=== PATIENT | female | born 1950 | race Caucasian/White ===

== ENCOUNTER → 2018-04-27 10:44 | Outpatient (CLI) | payer OTHER, SELFPAY ==
[2018-04-27 12:28] LABS: Hemoglobin A1C% w Est Avg Glu 5.8 % (4.0-6.0)
[2018-04-27 12:37] LABS: Alanine Aminotransferase 37 IU/L (9-52); Albumin 4.3 g/dL (3.5-5.0); Albumin Globulin Ratio 1.4 (1.0-2.8); Alkaline Phosphatase 76 U/L (38-126); Aspartate Aminotransferase 36 IU/L (14-36); Bilirubin Total 0.5 mg/dL (0.2-1.3); Blood Urea Nitrogen 16 mg/dL (7-17); Calcium 9.3 mg/dL (8.4-10.2); Carbon Dioxide 31 mmol/L (22-32); Chloride 100 mmol/L (98-107); Cholesterol 229 mg/dL (140-199); Estimated Glomerular Filt Rate > 60.0 mL/min (>60); Globulin 3.1 g/dL (1.7-4.1); Glucose 107 mg/dL (80-110); HDL Cholesterol 60 mg/dL (40-60); HEMOLYSIS < 15 (0-50); LDL Cholesterol Calculated 129 mg/dL (<100); Potassium 3.4 mmol/L (3.4-5.1); Sodium 143 mmol/L (137-145); Total Protein 7.4 g/dL (6.3-8.2); Triglycerides 200 mg/dL (35-150)
[2018-04-27 12:42] LABS: Free T4, Direct Thyroxine 1.21 ng/dL (0.78-2.19)
[2018-04-27 12:56] LABS: Thyroid Stimulating Hormone 1.71 uIU/mL (0.47-4.68)
== END ==
PROVIDERS: PCP Family Medicine; Visit Provider Internal Medicine
DX: Z13.220 Encounter for screening for lipoid disorders (principal); R73.01 Impaired fasting glucose; E89.0 Postprocedural hypothyroidism
CPT/HCPCS: 36415; 80053; 80061; 83036; 84439; 84443

== ENCOUNTER → 2018-04-29 10:16 | Outpatient (CLI) | payer OTHER, SELFPAY ==
--- NOTE | 2018-04-29 10:17 | DI.MG.S_ITS ---
BILATERAL DIGITAL SCREENING MAMMOGRAM 3D/2D WITH CAD: 04/29/2018 CLINICAL: Routine screening. Comparison is made to exams dated: 10/06/2016 mammogram, 08/19/2015 mammogram, and 09/25/2012 mammogram - Located Within [facility]. There are scattered fibroglandular elements in both breasts. Current study was also evaluated with a Computer Aided Detection (CAD) system. No significant masses, calcifications, or other findings are seen in either breast. There has been no significant interval change. IMPRESSION: NEGATIVE There is no mammographic evidence of malignancy. A 1 year screening mammogram is recommended. This exam was interpreted at Station ID: [id number]. NOTE: For mammograms, a report in lay terms will be sent to the patient. Approximately 15% of breast malignancies will not be visualized mammographically. In the management of a palpable breast mass, a negative mammogram must not discourage biopsy of a clinically suspicious lesion. Electronically Signed By: Tayla ariza/mejia:05/01/2018 09:59:03 letter sent: Normal Exam ACR BI-RADS Category 1: Negative [id number]
== END ==
PROVIDERS: PCP Family Medicine; Visit Provider Family Medicine
DX: Z12.31 Encounter for screening mammogram for malignant neoplasm of breast (principal)
CPT/HCPCS: 77063; 77067

== ENCOUNTER → 2018-09-29 12:16 | Outpatient (CLI) | payer OTHER, SELFPAY ==
--- NOTE | 2018-09-29 12:19 | DI.RAD.S_ITS ---
PROCEDURE: XR LUMBAR SPINE 2-3V INDICATIONS: POST LAMINECTOMY SYNDROME TECHNIQUE: 5 views of the lumbar spine were acquired. COMPARISON: [facility], , L-SPINE 2-3 VIEWS, 06/02/2016, 9:55. FINDINGS: Bones: 5 [id number] vertebrae are present. There is grade 1 anterolisthesis of L4 on L5. Degenerative endplate changes at L3-4 through L5-S1 levels are seen. No vertebral body compression fractures. No suspicious bony lesions. Oblique views shows left worse than right bilateral neuroforaminal narrowing at L4-5 and L5-S1 levels. Soft tissues: Overlying bowel gas pattern is normal. No suspicious soft tissue calcifications. IMPRESSION: Grade 1 anterolisthesis of L4 on L5 with degenerative disease at L3-4 through L5-S1 levels. Suggestion of bilateral neural foramina narrowing at L4-5 and L5-S1 levels. No acute compression fracture. Dictated by: Marlon Newell M.D. on 09/29/2018 at 13:54 Approved by: Marlon Newell M.D. on 09/29/2018 at 13:55
== END ==
PROVIDERS: PCP Family Medicine; Visit Provider Physical Medicine & Rehabilitation
DX: M96.1 Postlaminectomy syndrome, not elsewhere classified (principal); M51.16 Intervertebral disc disorders with radiculopathy, lumbar region; M51.17 Intervertebral disc disorders with radiculopathy, lumbosacral region; M43.16 Spondylolisthesis, lumbar region
CPT/HCPCS: 72100

== ENCOUNTER → 2018-10-13 07:42 | Outpatient (CLI) | payer OTHER, SELFPAY ==
--- NOTE | 2018-10-13 07:45 | DI.MRI.S_ITS ---
PROCEDURE: MR LUMBAR SPINE WO CON INDICATIONS: POST LAMINECTOMY SYNDROME TECHNIQUE: Noncontrast sagittal T1 spin echo and T2 fast echo, sagittal STIR, axial T1 and T2 fast spin echo through the lumbar spine. In cases with scoliosis, additional coronal T2 fast spin echo may be performed. COMPARISON: [facility], MR, L-SPINE WITHOUT CONTRAST, 05/04/2016, 18:52. [facility], CR, XR LUMBAR SPINE 2-3V, 09/29/2018, 12:22. FINDINGS: Image quality: Excellent. Alignment and Curvature: 5 lumbar-type vertebral bladder present by plain film. There is mild grade 1 anterolisthesis of L4 on L5. Mild grade 1 retrolisthesis of L5 on S1. Bone Marrow: Marrow is of normal overall signal. No acute vertebral body compression fractures. There is mild reactive signal within the endplates adjacent to the the L4-L5 and L5-S1 intervertebral discs. Spinal Cord: Conus medullaris terminates at the lower L2 level. Visualized cord demonstrates normal signal and size. Paraspinous Soft Tissues: No paravertebral masses. L1-L2: Small left paracentral protrusion. Minimal canal stenosis. No foraminal stenosis. No change. L2-L3: Mild diffuse disc bulge. Mild facet and ligamentum flavum hypertrophy. Mild epidural lipomatosis. Mild canal stenosis. No foraminal stenosis. L3-L4: Mild disc height loss and desiccation. Mild diffuse disc bulge. Mild facet and ligament flavum hypertrophy. Mild epidural lipomatosis. Mild canal stenosis. Mild bilateral foraminal stenosis. L4-L5: Moderate disc height loss and desiccation. Mild diffuse disc bulge. Right greater than left facet hypertrophy. Mild canal stenosis. Mild bilateral foraminal stenosis. No change. L5-S1: Moderate disc desiccation. Mild diffuse disc bulge. Moderate facet and ligamentum flavum hypertrophy. Mild canal stenosis. Moderate foraminal stenosis bilaterally. IMPRESSION: 1. Multilevel degenerative disc and facet disease, as well as ligamentum flavum hypertrophy and epidural lipomatosis. 2. Mild multilevel canal stenoses. 3. Multilevel foraminal stenoses, worse at L5-S1 bilaterally where there are moderate foraminal stenoses present, as before. Dictated by: Alexi Burnham M.D. on 10/13/2018 at 9:07 Approved by: Alexi Burnham M.D. on 10/13/2018 at 9:10
== END ==
PROVIDERS: PCP Family Medicine; Visit Provider Physical Medicine & Rehabilitation
DX: M96.1 Postlaminectomy syndrome, not elsewhere classified (principal); M51.36 Other intervertebral disc degeneration, lumbar region; M51.37 Other intervertebral disc degeneration, lumbosacral region; M48.061 Spinal stenosis, lumbar region without neurogenic claudication; M48.07 Spinal stenosis, lumbosacral region; M43.16 Spondylolisthesis, lumbar region; E88.2 Lipomatosis, not elsewhere classified
CPT/HCPCS: 72148

== ENCOUNTER 2018-10-24 13:15 | Outpatient (CLI) | payer OTHER, SELFPAY ==
[2018-10-24] VITALS (8 sets, daily range): BP systolic 134–162; BP diastolic 77–87; PULSE 85–95; RESP 16–20; TEMP 36.9; O2SAT 94–97
--- NOTE | 2018-10-24 13:16 | DI.RAD.S_ITS ---
PROCEDURE: PAIN L/S FACET INJ/BLK 1ST GRACIELA COMPARISON: None. INDICATIONS: SPINAL STENOSIS FINDINGS: Fluoroscopic spot filming was performed to verify placement of spinal needles at the L4-L5 and L5-S1 level(s), as labeled on the films. Appropriate location(s) of the needle tip(s) was confirmed by injection of iodinated contrast. Dictated by: Chad Guzman M.D. on 10/24/2018 at 15:14 Approved by: Chad Guzman M.D. on 10/24/2018 at 15:14
[2018-10-24] MEDS: fentaNYL 100 MCG/2 ML INJ 50 MCG IV (13:57)
[2018-10-24] MEDS: MIDAZOLAM 5 MG/5 ML VIAL IV (13:57)
[2018-10-24] MEDS: LIDOCAINE 1% 20 ML INJ 10 ML INJ (14:01)
[2018-10-24] MEDS: BUPIVACAINE 0.5% (PF) VIAL 2 ML INJ (14:03)
[2018-10-24] MEDS: BETAMETHASONE 30 MG/5 ML MDV 12 MG INJ (14:03)
--- NOTE | 2018-10-24 14:08 | PC.NURSE ---
ASSISTING PT OFF TABLE AND TRANSPORTING TO POST PROC AREA IN STABLE CONDITION
--- NOTE | 2018-10-24 14:16 | P.PCN_ITS ---
Procedures Date/Time Date of procedure: 10/24/18 Time of procedure: 14:15 General Procedure description: PREOP DIAGNOSIS 1. FACET ARTHROPATHY 2. AXIAL LBP 3. MULTILEVEL DDD POST OP DIAGNOSIS 1. FACET ARTHROPATHY 2. AXIAL LBP 3. MULTILEVEL DDD PROCEDURES 1. FLUORSCOPICALLY GUIDED CONTRAST CONTROLLED FACET JOINT INJECTIONS BILATERAL L4/5, L5/S1 PHYSICIAN: William Nunes, DO INDICATIONS Whitney is referred by Dr. Luis for treatment of Axial LBP FINDINGS Multilevel Facet Arthropathy with Clinically significant axial LBP DESCRIPTION OF PROCEDURE Fluoroscopically guided, contrast-controlled bilateral L4/5, L5/S1 facet joint injections. Following denial of allergy and review of potential side effects and complications, including, but not necessarily limited to, infection, allergic reaction, local tissue breakdown, stroke, temporary or permanent nerve injury, paralysis, and possible , the patient indicated that the patient understood and agreed to proceed. An informed consent document was signed by the patient, witnessed by a nurse, and placed in the patient's chart. Additionally, other treatment options including medications, modalities, and physical therapy were reviewed with the patient. After review of previous anaesthesic history and IV conscious sedation the patient was deemed safe to proceed with todays procedure with IV conscious sedation as ASA class II designation. Safety time-out was performed to confirm patient ID, procedure to be performed and site of procedure. IV sedation was accomplished with a combination of 3mg Versed and 50mcg of Fentanyl was administered by the RN after DO order, titrated to patient comfort during the course of the procedure while the patient remained responsive to all verbal commands In the prone position, following sterile prep and drape of the lumbar region, the posterior aspect of the L4/5, L5/S1 facet joints were identified fluoroscopically. The skin was anesthetized via a 25-gauge 1.5-inch needle with 1% lidocaine solution into the corresponding facet joints. At this point, a 22- gauge 3.5-inch spinal needle was atraumatically introduced and advanced under fluoroscopic guidance into the corresponding facet joints. Following negative aspiration, injections of approximately 0.2-cc of Isovue 200 confirmed interarticular placement without vascular uptake. The identical procedure was then performed at the L4/5, L5/S1 facet joints on the left. Radiological data, including multiple fluoroscopic views of the lumbosacral spine, reveal a spinal needle at the L4/5, L5/S1 facet joints bilaterally. Subsequent views show flow of contrast material both superiorly and inferiorly within the joint space without vascular or intrathecal uptake. At this point, a total of 0.5 cc including a mixture of 0.25cc Marcaine and 0.25cc betamethasone was injected without complication into each of the corresponding facet joints. The patient tolerated the procedure well without signs or symptoms of complications prior to transfer to the recovery area continued monitoring without incident. The patient was then transferred to the recovery area where they were observed for an appropriate period of time after the injection. The patient reported a VAS score of 7 prior to the procedure and a post- procedure VAS of 0. Total Fluoroscopy Time: 20.3 seconds Total Conscious Sedation Time: 24min POST OP INSTRUCTIONS The patient was provided a Pain Log to continue to record their response to the target-specific procedure prior to follow-up visit with their referring physician. Additionally, specific post-injection care instructions and a contact number to our office were provided if concerns arise regarding possible complications associated with the procedure are suspected. William Nunes DO Complications: none
--- NOTE | 2018-10-24 14:47 | PC.NURSE ---
Pt Returned from procedure awake and alert via wheelchair, able to get from w/c to chair with minimal assist. Resumed monitoring from Nadya ANGEL.
--- NOTE | 2018-10-25 15:08 | PC.NURSE ---
Follow up call made but patient did not answer phone so message left.
== END 2018-10-24 15:41 ==
LOC: RAD 13:16
PROVIDERS: PCP Family Medicine; Visit Provider Physical Medicine & Rehabilitation
DX: M47.817 Spondylosis without myelopathy or radiculopathy, lumbosacral region (principal); M47.816 Spondylosis without myelopathy or radiculopathy, lumbar region; M51.36 Other intervertebral disc degeneration, lumbar region; M51.37 Other intervertebral disc degeneration, lumbosacral region; M54.5 Low back pain; M96.1 Postlaminectomy syndrome, not elsewhere classified
CPT/HCPCS: 64493; 64494; 99152; J0702; J2250; J3010

== ENCOUNTER → 2018-12-12 12:41 | Outpatient (CLI) | payer OTHER, SELFPAY ==
[2018-12-12 13:41] LABS: Alanine Aminotransferase 24 IU/L (9-52); Albumin 4.4 g/dL (3.5-5.0); Albumin Globulin Ratio 1.4 (1.0-2.8); Alkaline Phosphatase 73 U/L (38-126); Aspartate Aminotransferase 28 IU/L (14-36); BUN Creatinine Ratio 26.3 (6-22); Bilirubin Total 0.3 mg/dL (0.2-1.3); Blood Urea Nitrogen 21 mg/dL (7-17); Calcium 9.4 mg/dL (8.4-10.2); Carbon Dioxide 28 mmol/L (22-32); Chloride 100 mmol/L (98-107); Cholesterol 206 mg/dL (140-199); Estimated Glomerular Filt Rate > 60.0 mL/min (>60); Globulin 3.2 g/dL (1.7-4.1); Glucose 101 mg/dL (80-110); HDL Cholesterol 61 mg/dL (40-60); HEMOLYSIS < 15 (0-50); LDL Cholesterol Calculated 115 mg/dL (<100); Potassium 3.6 mmol/L (3.4-5.1); Sodium 139 mmol/L (137-145); Total Protein 7.6 g/dL (6.3-8.2); Triglycerides 148 mg/dL (35-150)
[2018-12-12 13:54] LABS: Hemoglobin A1C% w Est Avg Glu 5.7 % (4.0-6.0)
[2018-12-12 15:06] LABS: Free T4, Direct Thyroxine 1.24 ng/dL (0.78-2.19)
[2018-12-12 15:20] LABS: Thyroid Stimulating Hormone 1.16 uIU/mL (0.47-4.68)
== END ==
PROVIDERS: PCP Family Medicine; Visit Provider Internal Medicine
DX: E89.0 Postprocedural hypothyroidism (principal)
CPT/HCPCS: 36415; 80053; 80061; 83036; 84439; 84443

== ENCOUNTER 2019-01-04 08:51 | Outpatient (CLI) | payer OTHER, SELFPAY ==
[2019-01-04] VITALS (7 sets, daily range): BP systolic 128–159; BP diastolic 64–86; PULSE 66–86; RESP 16–18; TEMP 36.6; O2SAT 96–99
--- NOTE | 2019-01-04 08:52 | DI.RAD.S_ITS ---
PROCEDURE: PAIN L INTERLAMINAR/CAUDAL INJ INDICATIONS: SPONDYLOSIS FINDINGS: Fluoroscopic spot filming was performed to verify placement of spinal needles at the L4-5 level(s), as labeled on the films. Appropriate location(s) of the needle tip(s) was confirmed by injection of iodinated contrast. IMPRESSION: Successful midline dorsal L4-5 needle tip localization for interlaminar steroid injection. Dictated by: Khurram Samuels M.D. on 01/04/2019 at 10:46 Approved by: Khurram Samuels M.D. on 01/04/2019 at 10:46
[2019-01-04] MEDS: MIDAZOLAM 5 MG/5 ML VIAL IV (09:55)
[2019-01-04] MEDS: IOPAMIDOL 15 ML VIAL 3 ML INJ (09:58)
[2019-01-04] MEDS: BETAMETHASONE 30 MG/5 ML MDV 12 MG INJ (09:58)
[2019-01-04] MEDS: BUPIVACAINE 0.25% (PF) VIAL 2 ML INJ (09:58)
--- NOTE | 2019-01-04 10:05 | PC.NURSE ---
Pt tolerated procedure well. Pt awake and alert getting off table and into wheelchair, transferred to pre procedure room for continued monitoring with Nadya ANGEL.
--- NOTE | 2019-01-04 10:08 | P.PCN_ITS ---
Procedures Date/Time Date of procedure: 01/04/19 Time of procedure: 10:07 General Procedure description: PROVIDER: William Nunes DO Operative Note PREOP DIAGNOSIS 1. HNP WITH RADICULAR FEATURES, 2. MULTILEVEL CENTRAL STENOSIS, POST OP DIAGNOSIS 1. HNP WITH RADICULAR FEATURES, 2. MULTILEVEL CENTRAL STENOSIS PROCEDURES 1. FLUORSCOPICALLY GUIDED CONTRAST CONTROLLED INTERLAMINAR EPIDURAL STEROID INJECTION -L4/5 PHYSICIAN: William Nunes DO INDICATIONs: Whitney is referred by Dr. Luis for treatment of Bilateral Foraminal Stenosis R>L LE symptoms. FINDINGS Multilevel Central Spinal Stenosis with Nerve Root Compression DESCRIPTION OF PROCEDURE Fluoroscopically guided, contrast-controlled L4/5 translaminar epidural steroid injection. Following denial of allergy and review of potential side effects and complications, including, but not necessarily limited to, infection, allergic reaction, local tissue breakdown, temporary as well as permanent nerve injury, paralysis, stroke and possible , the patient indicated that the patient understood and agreed to proceed. An informed consent document was signed by the patient, witnessed by a nurse, and placed in the patient's chart. Additionally, other treatment options including modalities, medications, and physical therapy were reviewed with the patient. After review of previous anaesthesic history and IV conscious sedation the patient was deemed safe to proceed with todays procedure with IV conscious sedation as ASA class II designation. Safety time-out was performed to confirm patient ID, procedure to be performed and site of procedure. IV sedation was accomplished with a combination of 3mg of Versed was administered by the RN after DO order, titrated to patient comfort during the course of the procedure while the patient remained responsive to all verbal commands In the prone position, following sterile prep and drape of the lumbar region, the L4/5 translaminar space was identified fluoroscopically. The skin was anesthetized via a 25-gauge, 1.5-inch needle with 1% lidocaine solution. At this point, a 22-gauge short bevel spinal needle was atraumatically introduced and advanced under fluoroscopic guidance into the region of the L4/5 cantor slaminar space. Depth was confirmed on lateral view. Radiological data, including multiple fluoroscopic views of the lumbar spine, reveal a spinal needle at the L4/5 translaminar space. Lateral views then show placement of the needle in the epidural space. Subsequent views show contrast material flowing superiorly and inferiorly in the epidural space. No vascular or intrathecal uptake is observed. At this point, using loss of resistance technique with saline and air, the epidural space was entered. This was confirmed following negative aspiration with injection of approximately 1.5 cc of Isovue 200, showing excellent epidural flow without vascular or intrathecal uptake. At this point, 1 cc of 1% lidocaine solution combined with 3cc or 20mg of dexamethasone and 6mg of betamethasone was injected without incident. The patient tolerated the procedure well without signs or symptoms of complications prior to transfer to the recovery area continued monitoring without incident. The patient was then transferred to the recovery area where they were observed for an appropriate period of time after the injection. The patient reported a VAS score of 6 prior to the procedure and a post- procedure VAS of 0. Total Fluoroscopy Time: 11.8 seconds, 8.99 mGy Total Conscious Sedation Time: 24min POST OP INSTRUCTIONS The patient was provided a Pain Log to continue to record their response to the target-specific procedure prior to follow-up visit with their referring physician. Additionally, specific post-injection care instructions and a contact number to our office were provided if concerns arise regarding possible complications associated with the procedure are suspected. William Nunes, Complications: none
[2019-01-04] MEDS: DEXAMETHASONE 10 MG/ML VIAL 20 MG INJ (10:16)
--- NOTE | 2019-01-04 10:19 | PC.NURSE ---
ACCEPTED CARE OF PT IN POST PROC AREA IN STABLE CONDITION
--- NOTE | 2019-01-04 12:03 | PC.NURSE ---
SINCE ARRIVAL TO POST PROC AREA PT HAS BEEN C/O TINGLING AND HER LEGS FEELING HEAVY. UPON EACH ATTEMPT TO STAND, PT NEEDED STRONG ASSISTANCE TO STAND AND CAN NOT SAFELY MOVE FROM CHAIR TO CHAIR AT THIS TIME. WILL CONTINUE TO MONITOR UNTIL PT CAN TRANSFER SAFELY.
--- NOTE | 2019-01-04 12:40 | PC.NURSE ---
BILAT LEGS ARE PROGRESSING, PT ABLE TO MOVE KNEES WHILE STANDING BUT UPON BENDING KNEES BECAME UNSTEADY. WILL CONTINUE TO MONITOR.
--- NOTE | 2019-01-04 13:43 | PC.NURSE ---
PT NOW STEADY ON HER FEET AND ABLE TO WALK FORWARD AND BACKWARDS WITHOUT ASSISTANCE.
== END 2019-01-04 13:44 | disposition home or self-care (01) ==
LOC: RAD 08:52
PROVIDERS: PCP Family Medicine; Visit Provider Physical Medicine & Rehabilitation
DX: M51.16 Intervertebral disc disorders with radiculopathy, lumbar region (principal); M48.061 Spinal stenosis, lumbar region without neurogenic claudication
CPT/HCPCS: 62323; J0702; J1100; J2250; J3010

== ENCOUNTER → 2019-02-06 14:11 | Outpatient (CLI) | payer OTHER, SELFPAY | PROVIDERS: PCP Family Medicine; Visit Provider Internal Medicine | DX: Z78.0 Asymptomatic menopausal state (principal); E07.9 Disorder of thyroid, unspecified | CPT/HCPCS: 77080 ==

== ENCOUNTER → 2019-07-16 11:04 | Outpatient (CLI) | payer OTHER, SELFPAY ==
[2019-07-16 12:46] LABS: HEMOLYSIS < 15 (0-50); Potassium 3.1 mmol/L (3.4-5.1)
[2019-07-16 13:32] LABS: TSH w/ Reflex to FT4 1.02 uIU/mL (0.47-4.68)
== END ==
PROVIDERS: Family Medicine; Family Provider Family Medicine; PCP Family Medicine; Visit Provider Internal Medicine
DX: E89.0 Postprocedural hypothyroidism (principal); I10 Essential (primary) hypertension; R35.8 Other polyuria
CPT/HCPCS: 36415; 84132; 84443

== ENCOUNTER → 2020-03-07 10:07 | Outpatient (CLI) | payer OTHER, SELFPAY ==
--- NOTE | 2020-03-07 10:10 | DI.RAD.S_ITS ---
PROCEDURE: XR ELBOW RT MIN 3V INDICATIONS: r elbow pain ad hand pain TECHNIQUE: 3 views of the elbow were acquired. COMPARISON: None. FINDINGS: Bones: There is a ossicle adjacent to the medial epicondyle. Osteophytes are present in medial and lateral epicondyles suggest epicondylitis. No fractures or dislocations. No suspicious bony lesions. Soft tissues: No elbow joint effusion. No suspicious soft tissue calcifications. IMPRESSION: 1. Ossicle adjacent to the medial epicondyle could be an avulsion fracture fragment. 2. Suspect medial and at lateral epicondylitis. Dictated by: Siva Tolbert M.D. on 03/07/2020 at 10:37 Approved by: Siva Tolbert M.D. on 03/07/2020 at 10:41
--- NOTE | 2020-03-07 10:10 | DI.RAD.S_ITS ---
PROCEDURE: XR HAND RT MIN 3V INDICATIONS: r elbow pain ad hand pain TECHNIQUE: 3 views of the hand(s) acquired. COMPARISON: None. FINDINGS: Bones: No fractures or dislocations. Carpal bones are normally aligned. No suspicious bony lesions. There is [id number] degenerative joint disease at the 1st carpometacarpal joint, 1st and 2nd metacarpophalangeal joint and multiple interphalangeal joints. Soft tissues: No suspicious soft tissue calcifications. IMPRESSION: No acute osseous abnormalities. [id number] degenerative joint disease. Dictated by: Siva Tolebrt M.D. on 03/07/2020 at 10:41 Approved by: Siva Tolbert M.D. on 03/07/2020 at 10:44
== END ==
PROVIDERS: Family Provider Family Medicine; PCP Family Medicine; Referring Provider Physician Assistant; Visit Provider Physician Assistant
DX: M25.521 Pain in right elbow (principal); M79.641 Pain in right hand; M18.11 Unilateral primary osteoarthritis of first carpometacarpal joint, right hand; M19.041 Primary osteoarthritis, right hand
CPT/HCPCS: 73080; 73130

== ENCOUNTER → 2021-04-28 12:14 | Outpatient (CLI) | payer OTHER, SELFPAY ==
[2021-04-28 13:12] LABS: Add Manual Diff / Slide Review NO; Basophils Absolute Auto 0 /uL (0-100); Basophils Percent Auto 0.3 % (0-2); Eosinophils Absolute Auto 100 /uL (0-450); Eosinophils Percent Auto 1.1 % (2-4); Hematocrit 42.1 % (36-46); Hemoglobin 13.9 g/dL (12.0-16.0); Lymphocytes Absolute Auto 2400 /uL (1100-4500); Mean Corpuscular Hemoglobin 31.3 PG (26-34); Mean Corpuscular Volume 94.9 fL (80-100); Monocytes Absolute Auto 800 /uL (0-900); Monocytes Percent Auto 9.8 % (3-14); Neutrophils Absolute Auto 4500 /uL (1500-7000); Neutrophils Percent Auto 57.8 % (50-75); Platelet Count 269 X10^3/uL (150-400); Red Blood Cell Count 4.43 X10^6/uL (4.0-5.2); Red Cell Distribution Width 13.5 % (11.6-14.8); White Blood Cell Count 7.7 X10^3/uL (4.5-11.0)
[2021-04-28 13:33] LABS: Alanine Aminotransferase 27 IU/L (<35); Albumin 4.4 g/dL (3.5-5.0); Albumin Globulin Ratio 1.4 (1.0-2.8); Alkaline Phosphatase 78 U/L (38-126); Aspartate Aminotransferase 39 IU/L (14-36); Bilirubin Total 0.5 mg/dL (0.2-1.3); Blood Urea Nitrogen 18 mg/dL (7-17); C-Reactive Protein Quant 0.7 mg/dL (<1.0); Carbon Dioxide 33 mmol/L (22-32); Chloride 101 mmol/L (98-107); Estimated Glomerular Filt Rate > 60.0 mL/min (>60); Globulin 3.2 g/dL (1.7-4.1); Glucose 107 mg/dL (80-110); HEMOLYSIS < 15 (0-50); Potassium 4.5 mmol/L (3.4-5.1); Sodium 139 mmol/L (137-145); Total Protein 7.6 g/dL (6.3-8.2)
[2021-04-28 13:39] LABS: Erythrocyte Sedimentation Rate 15 MM/HR (0-20)
[2021-04-28 14:07] LABS: Thyroid Stimulating Hormone < 0.015 uIU/mL (0.47-4.68)
[2021-04-28 14:19] LABS: Vitamin B12 605 pg/mL (239-931)
== END ==
PROVIDERS: Family Provider Family Medicine; PCP Physician Assistant; Referring Provider Psychiatry & Neurology Psychiatry; Visit Provider Psychiatry & Neurology Psychiatry
DX: R63.4 Abnormal weight loss (principal); F33.1 Major depressive disorder, recurrent, moderate; F43.10 Post-traumatic stress disorder, unspecified; F41.1 Generalized anxiety disorder; Z51.81 Encounter for therapeutic drug level monitoring
CPT/HCPCS: 36415; 80053; 82607; 84443; 85025; 85651; 86140; 99214

== ENCOUNTER → 2021-08-05 15:32 | Outpatient (CLI) | payer OTHER, SELFPAY ==
--- NOTE | 2021-08-05 15:33 | DI.RAD.S_ITS ---
PROCEDURE: XR KNEE LT 3V INDICATIONS: fall, left knee pain TECHNIQUE: 3 views of the knee were acquired. COMPARISON: [facility], , KNEE 3V LEFT, 10/26/2012, 15:15. FINDINGS: Bones: No fractures or dislocations. No suspicious bony lesions. Mild narrowing of the medial femoral tibial joint as well as the patellofemoral knee joint and there is tricompartmental periarticular osteophyte formation. Soft tissues: No joint effusion. No suspicious soft tissue calcifications. IMPRESSION: Tricompartmental knee joint degeneration, most notably involving the medial femorotibial and the patellofemoral knee joints. If pain persist with conservative management, consider cross-sectional imaging such as CT or MRI. Dictated by: Jorge Olivo [facility] Interpreted: Siva Tolbert MD on 08/05/2021 at 15:49 Transcribed by: PINO on 08/05/2021 at 15:50 Approved by: Siva Tolbert M.D. on 08/05/2021 at 17:02
== END ==
PROVIDERS: Family Provider Family Medicine; PCP Physician Assistant; Referring Provider Nurse Practitioner Family; Visit Provider Nurse Practitioner Family
DX: S86.912A Strain of unspecified muscle(s) and tendon(s) at lower leg level, left leg, initial encounter (principal); M17.12 Unilateral primary osteoarthritis, left knee; F43.10 Post-traumatic stress disorder, unspecified; F33.1 Major depressive disorder, recurrent, moderate; F41.1 Generalized anxiety disorder; W19.XXXA Unspecified fall, initial encounter
CPT/HCPCS: 73562

== ENCOUNTER 2022-05-21 12:37 | Emergency (ER) | payer OTHER, SELFPAY ==
[2022-05-21] VITALS (9 sets, daily range): BP systolic 165–185; BP diastolic 78–85; PULSE 67–95; RESP 13–23; TEMP 36.8; O2SAT 97–99; BMI 28.7
[2022-05-21 13:07] LABS: Add Manual Diff / Slide Review NO; Basophils Absolute Auto 100 /uL (0-100); Basophils Percent Auto 0.7 % (0-2); Eosinophils Absolute Auto 100 /uL (0-450); Eosinophils Percent Auto 1.1 % (2-4); Hematocrit 40.7 % (36-46); Hemoglobin 13.7 g/dL (12.0-16.0); Lymphocytes Absolute Auto 2800 /uL (1100-4500); Lymphocytes Percent Auto 22.2 % (25-40); Mean Corpuscular HGB Conc 33.8 % (30-36); Mean Corpuscular Hemoglobin 31.5 PG (26-34); Mean Corpuscular Volume 93.3 fL (80-100); Monocytes Absolute Auto 1200 /uL (0-900); Monocytes Percent Auto 9.6 % (3-14); Neutrophils Absolute Auto 8500 /uL (1500-7000); Neutrophils Percent Auto 66.4 % (50-75); Platelet Count 238 X10^3/uL (150-400); Red Blood Cell Count 4.36 X10^6/uL (4.0-5.2); Red Cell Distribution Width 12.7 % (11.6-14.8); White Blood Cell Count 12.8 X10^3/uL (4.5-11.0)
[2022-05-21 13:17] LABS: Alanine Aminotransferase 18 IU/L (<35); Albumin 4.3 g/dL (3.5-5.0); Albumin Globulin Ratio 1.1 (1.0-2.8); Alkaline Phosphatase 101 U/L (38-126); Aspartate Aminotransferase 29 IU/L (14-36); BUN Creatinine Ratio 23.2 (6-22); Bilirubin Total 0.6 mg/dL (0.2-1.3); Blood Urea Nitrogen 16 mg/dL (7-17); Calcium 9.2 mg/dL (8.4-10.2); Carbon Dioxide 29 mmol/L (22-32); Chloride 100 mmol/L (98-107); Estimated Glomerular Filt Rate > 60 mL/min (>60); Globulin 3.8 g/dL (1.7-4.1); Glucose 94 mg/dL (80-110); HEMOLYSIS < 15 (0-50); Lipase 115 U/L (23-300); Potassium 3.3 mmol/L (3.4-5.1); Sodium 136 mmol/L (137-145); Total Protein 8.1 g/dL (6.3-8.2)
--- NOTE | 2022-05-21 13:17 | ED_ITS ---
HPI - General Adult General Chief complaint: Abdominal Pain Stated complaint: ABD pain, HX of diverticulitis Time Seen by Provider: 05/21/22 13:05 Source: patient Mode of arrival: Ambulatory Limitations: no limitations History of Present Illness HPI narrative: 72-year-old female. Has a history of diverticulitis but this was many years ago here for evaluation of 2 weeks of worsening left-sided abdominal pain and bloating. Has had some issues with constipation and also mucus. No blood. No nausea vomiting. No fevers. No urinary symptoms. No history of bowel surgeries. Has taken some ibuprofen prior to arrival with some improvement Related Data Home Medications Medication Instructions Recorded Confirmed cholecalciferol (vitamin D3) 50 4,000 unit PO QDAY ##0 10/25/12 04/28/22 mcg (2,000 unit) capsule (Vitamin D3) multivitamin 1 cap PO DAILY 07/27/19 04/28/22 levothyroxine 100 mcg capsule 100 mcg PO .Every other day 09/23/20 04/28/22 levothyroxine 112 mcg tablet 112 mcg PO .every other day 09/23/20 04/28/22 terbinafine HCl 250 mg tablet 250 mg PO DAILY 09/23/20 04/28/22 Previous Rx's Medication Instructions Recorded Syringes syr IM SEE INSTRUCTIONS ##3 04/27/18 eszopiclone 1 mg tablet 1 mg PO BEDTIME PRN severe 09/16/21 insomnia #10 tabs albuterol sulfate 90 mcg/actuation 2 puff inhalation Q6H PRN 12/25/21 aerosol inhaler shortness of breath or wheezing #6.7 grams desvenlafaxine succinate 50 mg See Rx Instructions .Route 03/12/22 tablet,extended release 24 hr .COMPLEX #90 tabs lorazepam 1 mg tablet 1 mg PO BID-TID PRN anxiety #10 04/28/22 tabs ciprofloxacin HCl 500 mg tablet 500 mg PO BID 10 days #20 tabs 05/21/22 metronidazole 500 mg tablet 500 mg PO TID 10 days #30 tabs 05/21/22 Allergies Allergy/AdvReac Type Severity Reaction Status Date / Time amitriptyline [AMITRIPTYLINE] Allergy Mild ITCHING Verified 05/21/22 12:48 codeine [CODEINE] Allergy Mild ITCHING Verified 05/21/22 12:48 hydrocodone [HYDROCODONE] Allergy Mild ITCHING Verified 05/21/22 12:48 hydromorphone [HYDROMORPHONE] Allergy Mild RASH Verified 05/21/22 12:48 metoclopramide Allergy Mild Verified 05/21/22 12:48 [METOCLOPRAMIDE] oxycodone [OXYCODONE] Allergy Mild ITCHING Verified 05/21/22 12:48 prochlorperazine Allergy Mild Verified 05/21/22 12:48 [PROCHLORPERAZINE] sumatriptan [SUMATRIPTAN] Allergy Mild Verified 05/21/22 12:48 escitalopram [ESCITALOPRAM] AdvReac Unknown SHAKEY,ANXI Verified 05/21/22 12:48 OUS,ELIAS Review of Systems Review of Systems ROS Unobtainable: All systems reviewed & are unremarkable except as noted in HPI and below Patient History Medical History (Updated 05/21/22 @ 14:34 by Reymundo Brand DO) Allergic rhinitis Anxiety Chronic back pain Chronic headaches Colon polyps (2010) Depression Fibromyalgia Graves disease History of radioactive iodine thyroid ablation Hypertension Hypothyroidism IBS (irritable bowel syndrome) Migraines Sleep apnea Vitamin B 12 deficiency Surgical History History of cervical spinal surgery (2008) History of colonoscopy with polypectomy (2010) Status post laminectomy (2009) Family History Father Colon polyps Social History marital status: number of children: 3 household members: spouse lives independently: No caregiver/support person: Yes housing: house education level: vocational occupational status: unemployed Smoking Status: Never smoker alcohol intake: current substance use type: does not use Smoking Status: Never smoker alcohol intake frequency: holidays/special occasions only Substance Use Type: does not use Exam Initial Vital Signs Initial Vital Signs: Vital Signs Temperature 98.3 F 05/21/22 12:42 Pulse Rate 88 05/21/22 12:42 Respiratory Rate 17 05/21/22 12:42 Blood Pressure 185/81 H 05/21/22 12:42 Pulse Oximetry 97 05/21/22 12:42 Oxygen Delivery Method 05/21/22 12:42 Const General: cooperative and comfortable HENMT Head: normal to inspection and normocephalic Resp Effort & Inspection: normal respiratory effort Auscultation: clear to auscultation bilaterally Cardio Rate: regular rate Rhythm: regular rhythm GI Inspection: distended Palpation: soft, No firm, No guarding and tender Skin General: no rashes or lesions noted Neuro General: patient alert, patient awake, patient oriented x3 and moves all extremities Extrem General: normal to inspection and capillary refill normal Psych Appearance: grossly normal and well kempt Course Orders Ordered: ED Orders 05/21/22 12:52 Complete Blood Count AUTO DIFF Stat Comprehensive Metabolic Panel Stat Lipase Stat 05/21/22 12:58 EKG-12 Lead Stat 05/21/22 13:17 CT abdomen pelvis w con Stat Discontinued Medications Sodium Chloride (Normal Saline 0.9%) 1,000 mls @ 1,000 mls/hr IV BOLUS ONE Stop: 05/21/22 14:16 Last Admin: 05/21/22 13:36 Dose: 1,000 mls/hr Documented By: MEGAN Vital Signs Vital signs: Vital Signs - 8 hr 05/21/22 12:42 05/21/22 12:46 05/21/22 12:46 Temperature 98.3 F Pulse Rate 88 95 H Respiratory Rate 17 Blood Pressure 185/81 H 185/81 H Pulse Oximetry 97 97 Oxygen Delivery Method Room Air 05/21/22 12:56 05/21/22 12:56 05/21/22 13:00 Temperature Pulse Rate 68 Respiratory Rate 23 Blood Pressure 180/83 H 171/79 H Pulse Oximetry 98 Oxygen Delivery Method 05/21/22 13:00 05/21/22 13:30 05/21/22 13:30 Temperature Pulse Rate 67 67 Respiratory Rate 17 15 Blood Pressure 169/78 H Pulse Oximetry 98 97 Oxygen Delivery Method 05/21/22 13:48 05/21/22 13:48 05/21/22 14:00 Temperature Pulse Rate 77 Respiratory Rate 17 Blood Pressure 173/79 H 165/79 H Pulse Oximetry 99 Oxygen Delivery Method 05/21/22 14:00 Temperature Pulse Rate 74 Respiratory Rate 15 Blood Pressure Pulse Oximetry 99 Oxygen Delivery Method Medical Decision Making Lab Data Lab results reviewed: Yes I reviewed the patient's lab results. Result diagrams: 05/21/22 12:52 05/21/22 12:52 Labs: Lab Results 05/21/22 05/21/22 Range/Units 12:52 12:52 WBC 12.8 H (4.5-11.0) X10^3/uL RBC 4.36 (4.0-5.2) X10^6/uL Hgb 13.7 (12.0-16.0) g/dL Hct 40.7 (36-46) % MCV 93.3 (80-100) fL MCH 31.5 (26-34) PG MCHC 33.8 (30-36) % RDW 12.7 (11.6-14.8) % Plt Count 238 (150-400) X10^3/uL Neut % (Auto) 66.4 (50-75) % Lymph % (Auto) 22.2 L (25-40) % Yell % (Auto) 9.6 (3-14) % Eos % (Auto) 1.1 L (2-4) % Baso % (Auto) 0.7 (0-2) % Neut # (Auto) 8500 H (0879-6978) /uL Lymph # (Auto) 2800 (4978-9039) /uL Yell # (Auto) 1200 H (0-900) /uL Eos # (Auto) 100 (0-450) /uL Baso # (Auto) 100 (0-100) /uL Sodium 136 L (137-145) mmol/L Potassium 3.3 L (3.4-5.1) mmol/L Chloride 100 (98-107) mmol/L Carbon Dioxide 29 (22-32) mmol/L BUN 16 (7-17) mg/dL Creatinine 0.69 (0.52-1.04) mg/dL Estimated GFR > 60 (>60) mL/min BUN/Creatinine Ratio 23.2 H (6-22) Glucose 94 (80-110) mg/dL Calcium 9.2 (8.4-10.2) mg/dL Total Bilirubin 0.6 (0.2-1.3) mg/dL AST 29 (14-36) IU/L ALT 18 (<35) IU/L Alkaline Phosphatase 101 (38-126) U/L Total Protein 8.1 (6.3-8.2) g/dL Albumin 4.3 (3.5-5.0) g/dL Globulin 3.8 (1.7-4.1) g/dL Albumin/Globulin Ratio 1.1 (1.0-2.8) Lipase 115 (23-300) U/L Urine Dip Bedside Urine Glucose Negative Bedside Urine Bilirubin - Negative Bedside Urine Ketone - Negative Urine Specific [place] 1.010 Bedside Urine Occult Blood - Negative Bedside Urine pH 6.5 Bedside Urine Protein - Negative Bedside Urine Urobilinogen - Negative Bedside Urine Nitrite - Negative Bedside Urine Leukocytes - Negative Esterase Point of care testing: Urine Dip Bedside Urine Glucose Negative Bedside Urine Bilirubin - Negative Bedside Urine Ketone - Negative Urine Specific [place] 1.010 Bedside Urine Occult Blood - Negative Bedside Urine pH 6.5 Bedside Urine Protein - Negative Bedside Urine Urobilinogen - Negative Bedside Urine Nitrite - Negative Bedside Urine Leukocytes - Negative Esterase Imaging Data CT scan - abdomen/pelvis: Radiologist's Impression: [address] [address] [address] Scan Report Draft Patient: Whitney Jackman MR#: [id number] : 1950 Acct:[id number] Age/Sex: 72 / F Date of Service: 05/21/22 Loc: ED Accession Number: [id number] ?? Procedure: CT abdomen pelvis w con Ordering Provider: Reymundo Brand D.O. Caution: Report not yet finalized and possibly incomplete! ? ? PROCEDURE:? CT ABDOMEN PELVIS W CON ? INDICATIONS:? Left-sided abdominal pain, history of diverticulitis ? TECHNIQUE:? After the administration of intravenous contrast, axial sections acquired from the lung bases to the pubic symphysis.? Coronal and sagittal reformats were performed.? For radiation dose reduction, the following was used:? automated exposure control, adjustment of mA and/or kV according to patient size.? ? COMPARISON:? [facility], CT, ABDOMEN/PELVIS WITH CONTRAST, 08/02/2016, 14:26. ? FINDINGS:? Image quality:? Excellent.? ? Lung bases:? Unremarkable. Heart:? No significant findings. ? ABDOMEN: Liver:? Unremarkable.? ? Gallbladder:? Demonstrates radiodense foci within its lumen.? No evidence of wall thickening. Biliary ducts:? Unremarkable.? ? Pancreas:? Unremarkable.? ? Spleen:? Unremarkable.? ? Adrenal Glands:? Unremarkable.? ? Kidneys and Ureters:? Unremarkable.? ? ? Stomach and Bowel:? Stomach and small bowel is within normal limits.? Diverticulosis of the descending and sigmoid colon is present.? There is moderate thickening of the proximal sigmoid colon which demonstrates moderate surrounding fat stranding.? No pericolonic abscess.? The appendix has increased slightly in size, currently 11 mm short axis and demonstrates low density material within its lumen. Peritoneum:? No abnormal intraperitoneal fluid.? No free air.? ? Ventral Wall: ? No hernias.? Abdominal Nodes:? No retroperitoneal or mesenteric adenopathy by size criteria.? Vessels:? Aorta and inferior vena cava are normal in size.? ? PELVIS: Pelvic Organs:? Unremarkable.? ? Bladder:? Unremarkable.? ? Pelvic Nodes: No enlarged lymph nodes.? Miscellaneous: No hernias are seen. ? ? ? Bones:? Unremarkable.? IMPRESSION:? 1. Sigmoid diverticulitis.? No pericolonic abscess.? Follow-up colonoscopy is recommended to exclude underlying neoplasm. 1. Prominent size of appendix without evidence of surrounding inflammation. Findings could indicate mucocele; surgical consultation recommended.? ? Dictated by: Alexi Burnham M.D. on 05/21/2022 at 13:53 ? Transcribed by: AUGUSTO on 05/21/2022 at 13:56? ? ECG Data Attestation: I personally reviewed and interpreted this ECG as follows: Interpretation: Sinus rhythm Left axis deviation A bundle-branch block No ST T wave changes MDM Narrative Medical decision making narrative: CT scan is consistent with diverticulitis. She also has a mucocele her appendix. Discussed case with Dr. Harrington with General surgery who stated the patient could follow-up as an outpatient regarding this. Will treat with antibiotics for the diverticulitis. She is nontoxic appearing. No indication for admission hospital. She was given return precautions and follow-up instructions. She expressed understanding and agreement. Discharge Plan Departure Patient Disposition: Home Clinical Impression: Diverticulitis, Mucocele of appendix Instructions: DI for Diverticulitis Prescriptions: New ciprofloxacin HCl 500 mg tablet 500 mg PO BID 10 Days Qty: 20 0RF metronidazole 500 mg tablet 500 mg PO TID 10 Days Qty: 30 0RF No Action albuterol sulfate 90 mcg/actuation HFA aerosol inhaler 2 puff inhalation Q6H PRN (Reason: shortness of breath or wheezing) Qty: 6.7 0RF levothyroxine 112 mcg tablet 112 mcg PO .every other day Label Comments: alternating between 112mcg and 110mcg daily levothyroxine 100 mcg capsule 100 mcg PO .Every other day Rx Instructions: alternating with the 112 multivitamin Capsule 1 cap PO DAILY terbinafine HCl 250 mg tablet 250 mg PO DAILY eszopiclone 1 mg tablet 1 mg PO BEDTIME PRN (Reason: severe insomnia) Qty: 10 1RF Rx Instructions: Do not take within 4 hours of lorazepam lorazepam 1 mg tablet 1 mg PO BID-TID PRN (Reason: anxiety) Qty: 10 1RF cholecalciferol (vitamin D3) [Vitamin D3] 2,000 UNIT capsule 4,000 unit PO QDAY Qty: 0 Syringes IM SEE INSTRUCTIONS Qty: 3 3RF desvenlafaxine succinate 50 mg tablet extended release 24 hr See Rx Instructions .ROUTE .COMPLEX Qty: 90 1RF Dose Instruction: TAKE 1 TABLET BY MOUTH EVERY DAY Rx Instructions: TAKE 1 TABLET BY MOUTH EVERY DAY Referrals: Leonidas Suarez PA-C [Primary Care Provider] - Kayleigh Harrington MD [Physician] -
--- NOTE | 2022-05-21 13:17 | DI.CT.S_ITS ---
PROCEDURE: CT ABDOMEN PELVIS W CON INDICATIONS: Left-sided abdominal pain, history of diverticulitis TECHNIQUE: After the administration of intravenous contrast, axial sections acquired from the lung bases to the pubic symphysis. Coronal and sagittal reformats were performed. For radiation dose reduction, the following was used: automated exposure control, adjustment of mA and/or kV according to patient size. COMPARISON: [facility], CT, ABDOMEN/PELVIS WITH CONTRAST, 08/02/2016, 14:26. FINDINGS: Image quality: Excellent. Lung bases: Unremarkable. Heart: No significant findings. ABDOMEN: Liver: Unremarkable. Gallbladder: Demonstrates radiodense foci within its lumen. No evidence of wall thickening. Biliary ducts: Unremarkable. Pancreas: Unremarkable. Spleen: Unremarkable. Adrenal Glands: Unremarkable. Kidneys and Ureters: Unremarkable. Stomach and Bowel: Stomach and small bowel is within normal limits. Diverticulosis of the descending and sigmoid colon is present. There is moderate thickening of the proximal sigmoid colon which demonstrates moderate surrounding fat stranding. No pericolonic abscess. The appendix has increased slightly in size, currently 11 mm short axis and demonstrates low density material within its lumen. Peritoneum: No abnormal intraperitoneal fluid. No free air. Ventral Wall: No hernias. Abdominal Nodes: No retroperitoneal or mesenteric adenopathy by size criteria. Vessels: Aorta and inferior vena cava are normal in size. PELVIS: Pelvic Organs: Unremarkable. Bladder: Unremarkable. Pelvic Nodes: No enlarged lymph nodes. Miscellaneous: No hernias are seen. Bones: Unremarkable. IMPRESSION: 1. Sigmoid diverticulitis. No pericolonic abscess. Follow-up colonoscopy is recommended to exclude underlying neoplasm. 1. Prominent size of appendix without evidence of surrounding inflammation. Findings could indicate mucocele; surgical consultation recommended. Dictated by: Alexi Burnham M.D. on 05/21/2022 at 13:53 Transcribed by: AUGUSTO on 05/21/2022 at 13:56 Approved by: Alexi Burnham M.D. on 05/21/2022 at 14:06
[2022-05-21] MEDS: SODIUM CHLORIDE 0.9% 1,000 ML 1000 ML IV (13:36)
[2022-05-21] MEDS: KETOROLAC 30 MG/ML VIAL IV (14:48)
== END 2022-05-21 14:55 | disposition home or self-care (01) ==
PROVIDERS: Emergency Provider Emergency Medicine; Family Provider Family Medicine; PCP Physician Assistant
DX: K57.92 Diverticulitis of intestine, part unspecified, without perforation or abscess without bleeding (principal); K38.8 Other specified diseases of appendix; R10.9 Unspecified abdominal pain
CPT/HCPCS: 36415; 74177; 80053; 81003; 83690; 85025; 93005; 93010; 96361; 96374; 99284; J1885

== ENCOUNTER 2022-06-04 17:02 | Emergency (ER) | payer OTHER, SELFPAY ==
[2022-06-04] VITALS (19 sets, daily range): BP systolic 159–202; BP diastolic 76–99; PULSE 61–135; RESP 15–35; TEMP 36.6; O2SAT 93–99; BMI 29.0
--- NOTE | 2022-06-04 17:25 | DI.RAD.S_ITS ---
PROCEDURE: XR CHEST 1V INDICATIONS: chest pain TECHNIQUE: One view of the chest was acquired. COMPARISON: [facility], CHEST 2 VIEW, 09/11/2016, 16:18. [facility], CHEST 2 VIEW, 02/17/2016, 10:21. FINDINGS: Surgical changes and devices: None. Lungs and pleura: Lungs are clear. No pleural effusions or pneumothorax. Mediastinum: Mediastinal contours appear normal. Heart size is normal. Bones and chest wall: No suspicious bony lesions. Overlying soft tissues appear unremarkable. IMPRESSION: No acute cardiopulmonary abnormality. Dictated by: Lorenzo Everett M.D. on 06/04/2022 at 17:41 Approved by: Lorenzo Everett M.D. on 06/04/2022 at 17:41
[2022-06-04 18:05] LABS: Alanine Aminotransferase 32 IU/L (<35); Albumin 4.4 g/dL (3.5-5.0); Albumin Globulin Ratio 1.2 (1.0-2.8); Alkaline Phosphatase 72 U/L (38-126); Aspartate Aminotransferase 38 IU/L (14-36); BUN Creatinine Ratio 20.3 (6-22); Bilirubin Total 0.4 mg/dL (0.2-1.3); Blood Urea Nitrogen 16 mg/dL (7-17); Calcium 9.8 mg/dL (8.4-10.2); Carbon Dioxide 28 mmol/L (22-32); Chloride 100 mmol/L (98-107); Creatine Kinase 72 U/L (30-135); Estimated Glomerular Filt Rate > 60 mL/min (>60); Globulin 3.7 g/dL (1.7-4.1); Glucose 105 mg/dL (80-110); HEMOLYSIS 20 (0-50); Lipase 109 U/L (23-300); Magnesium 2.1 mg/dL (1.6-2.3); Potassium 3.2 mmol/L (3.4-5.1); Sodium 138 mmol/L (137-145); Total Protein 8.1 g/dL (6.3-8.2)
[2022-06-04 18:12] LABS: Add Manual Diff / Slide Review NO; Basophils Absolute Auto 200 /uL (0-100); Basophils Percent Auto 2.7 % (0-2); Eosinophils Absolute Auto 100 /uL (0-450); Eosinophils Percent Auto 1.7 % (2-4); Hematocrit 41.5 % (36-46); Hemoglobin 14.3 g/dL (12.0-16.0); Lymphocytes Absolute Auto 2400 /uL (1100-4500); Mean Corpuscular HGB Conc 34.4 % (30-36); Mean Corpuscular Hemoglobin 31.9 PG (26-34); Mean Corpuscular Volume 92.9 fL (80-100); Monocytes Absolute Auto 700 /uL (0-900); Monocytes Percent Auto 8.8 % (3-14); Neutrophils Absolute Auto 4800 /uL (1500-7000); Neutrophils Percent Auto 57.8 % (50-75); Platelet Count 278 X10^3/uL (150-400); Red Blood Cell Count 4.47 X10^6/uL (4.0-5.2); Red Cell Distribution Width 13.2 % (11.6-14.8); White Blood Cell Count 8.3 X10^3/uL (4.5-11.0)
[2022-06-04 18:15] LABS: Troponin I < 0.012 ng/mL (0.01-0.034)
--- NOTE | 2022-06-04 18:47 | DI.MRI.S_ITS ---
PROCEDURE: MR HEAD/BRAIN WO CON INDICATIONS: Dizziness/ataxia TECHNIQUE: Noncontrast axial T1 spin echo, axial T2 fast spin echo, sagittal and axial FLAIR, coronal T2 fast spin echo, axial gradient echo, axial diffusion and ADC through the brain. COMPARISON: None. FINDINGS: Image quality: There is mild inhomogeneous fat saturation. CSF Spaces: Basal cisterns are patent. No extra-axial fluid collections. There is mild cerebral volume loss with prominence of the ventricles and sulci. Brain: Diffusion-weighted images demonstrate no acute infarcts. No intracranial hemorrhage, mass, or mass effect. There are subcortical and periventricular foci of white matter T2 hyperintensity consistent with mild chronic small vessel ischemic changes. Mckeon/white matter interface is preserved. Brainstem appears normal. Normal intravascular flow voids are present. Skull and face: Calvarium has normal marrow signal. Orbits appear normal. Sinuses: There is a small fluid level in the left maxillary sinus suggestive of acute sinusitis. Mild partial fluid opacification is demonstrated within the mastoid air cells which may reflect mild mastoiditis. IMPRESSION: 1. No infarct or other acute intracranial abnormality. 2. Mild chronic white matter small vessel ischemic changes and cerebral volume loss. Dictated by: Gilbert Lema M.D. on 06/04/2022 at 21:49 Approved by: Gilbert Lema M.D. on 06/04/2022 at 21:53
--- NOTE | 2022-06-04 18:49 | ED_ITS ---
HPI - Headache General Chief Complaint: Headache Stated Complaint: Dizzy, BP high Time Seen by Provider: 06/04/22 18:09 Mode of arrival: Ambulatory History of Present Illness HPI Narrative: Patient here with son. Complains of generalized headache and dizziness, feels like she is spinning when she stands up. Worse with positional changes. Patient states has history of headaches/migraines but never had associated dizziness or elevated blood pressure. It has been running high recently. Patient seen here recently for diverticulitis. She states that has improved. Has been keeping hydrated. No vomiting no diarrhea no black or bloody stools. Has felt warm and congested. She tried flushing out her nose to see if that caused her dizziness. No hearing changes. No vision changes. No numbness tingling or weakness. No slurred speech or facial droop. Fast exam is negative. Patient also states she is going through a lot with family and stress. This past Tuesday was anniversary of the of her from 3 years ago. Currently father is in hospice and being cared by her sister, patient states she can not go through taking care of her father because her of multiple myeloma and he was taken care of by patient. The sister has been making very disparaging comments to patient. That is hurt her feelings. Son at bedside does agree. A lot of stress and anxiety has been going on. She no longer sees Dr. Greene her psychiatrist because psychiatrist moved away and treatment was agreeably discontinued. She currently not seeing any social support or counseling or therapy. Related Data Home Medications Medication Instructions Recorded Confirmed cholecalciferol (vitamin D3) 50 4,000 unit PO QDAY ##0 10/25/12 04/28/22 mcg (2,000 unit) capsule (Vitamin D3) multivitamin 1 cap PO DAILY 07/27/19 04/28/22 levothyroxine 100 mcg capsule 100 mcg PO .Every other day 09/23/20 06/04/22 hydrochlorothiazide 25 mg tablet 25 mg PO DAILY 06/04/22 06/04/22 potassium chloride 20 mEq 20 meq PO DAILY 06/04/22 06/04/22 tablet,extended release Previous Rx's Medication Instructions Recorded Syringes syr IM SEE INSTRUCTIONS ##3 04/27/18 eszopiclone 1 mg tablet 1 mg PO BEDTIME PRN severe 09/16/21 insomnia #10 tabs desvenlafaxine succinate 50 mg See Rx Instructions .Route 03/12/22 tablet,extended release 24 hr .COMPLEX #90 tabs lorazepam 1 mg tablet 1 mg PO BID-TID PRN anxiety #10 04/28/22 tabs lisinopril 10 mg tablet 10 mg PO DAILY #30 tabs 06/04/22 Allergies Allergy/AdvReac Type Severity Reaction Status Date / Time amitriptyline [AMITRIPTYLINE] Allergy Mild ITCHING Verified 06/04/22 17:11 codeine [CODEINE] Allergy Mild ITCHING Verified 06/04/22 17:11 hydrocodone [HYDROCODONE] Allergy Mild ITCHING Verified 06/04/22 17:11 hydromorphone [HYDROMORPHONE] Allergy Mild RASH Verified 06/04/22 17:11 metoclopramide Allergy Mild Verified 06/04/22 17:11 [METOCLOPRAMIDE] oxycodone [OXYCODONE] Allergy Mild ITCHING Verified 06/04/22 17:11 prochlorperazine Allergy Mild Verified 06/04/22 17:11 [PROCHLORPERAZINE] sumatriptan [SUMATRIPTAN] Allergy Mild Verified 06/04/22 17:11 escitalopram [ESCITALOPRAM] AdvReac Unknown SHAKEY,ANXI Verified 06/04/22 17:11 CURT IVAN Review of Systems Review of Systems Narrative: GENERAL: Denies chills, fatigue, malaise, denies fever, positive sweats. HEENT: Denies sinus pain, ear pain, sore throat, positive nasal congestion RESPIRATORY: Denies dyspnea, cough CARDIOVASCULAR: Denies chest pain, palpitations GASTROINTESTINAL: Denies nausea, vomiting, abdominal pain : Denies dysuria, frequency, hematuria MUSCULOSKELETAL: denies muscle or bony pain SKIN: Denies rash, skin lesions NEUROLOGIC: Denies weakness, numbness, negative slurred speech, positive dizziness positive headache ROS Unobtainable: All systems reviewed & are unremarkable except as noted in HPI and below Patient History Medical History (Updated 06/05/22 @ 00:00 by ) Allergic rhinitis Anxiety Chronic back pain Chronic headaches Colon polyps (2010) Depression Fibromyalgia Graves disease History of radioactive iodine thyroid ablation Hypertension Hypothyroidism IBS (irritable bowel syndrome) Migraines Sleep apnea Vitamin B 12 deficiency Surgical History History of cervical spinal surgery (2008) History of colonoscopy with polypectomy (2010) Status post laminectomy (2009) Family History Father Colon polyps Social History marital status: number of children: 3 household members: spouse lives independently: No caregiver/support person: Yes housing: house education level: vocational occupational status: unemployed Smoking Status: Never smoker alcohol intake: current substance use type: does not use Smoking Status: Never smoker alcohol intake frequency: holidays/special occasions only Substance Use Type: does not use Exam Narrative Exam Narrative: GENERAL: in no distress, not toxic not dyspneic HEAD: Normocephalic. EYES: Pupils equal round No scleral icterus. ENT: Mucous membranes moist. Examination right ear clear TM no effusion no fluid in the canal NECK: Trachea midline. No carotid bruit CARDIOVASCULAR: Regular rate and rhythm without murmurs RESPIRATORY: Clear to auscultation. Breath sounds equal bilaterally. No wheezes, rales, or rhonchi. GASTROINTESTINAL: Abdomen soft, non-tender EXTREMITIES: No gross deformities. BACK: No flank tenderness. NEURO: AOx4. Clear speech no facial droop. Clear speech no facial droop, slightly ataxic on gait. Requiring assist. No foot drop. ?Light touch intact to bilateral face hands. ?Strong equal maintenance team leader bilaterally and ankle flexion hip flexion and knee flexion. ?Strong bilateral patellar reflexes. ?Off balance when closing eyes and standing., negative pronator drift SKIN: Warm and dry PSYCH: Not anxious, is cooperative Initial Vital Signs Initial Vital Signs: Vital Signs Temperature 98 F 06/04/22 17:07 Pulse Rate 88 06/04/22 17:07 Respiratory Rate 17 06/04/22 17:07 Blood Pressure 197/91 H 06/04/22 17:07 Pulse Oximetry 97 06/04/22 17:07 Oxygen Delivery Method 06/04/22 17:07 Course Course Course Narrative: No new issues during course of stay Orders Ordered: ED Orders 06/04/22 17:25 XR chest 1V Stat Complete Blood Count AUTO DIFF Stat Comprehensive Metabolic Panel Stat Lipase Stat Magnesium Stat Troponin & CK Cardiac Panel Stat EKG-12 Lead Stat 06/04/22 18:47 MR head/brain wo con Stat 06/04/22 18:50 Respiratory Panel (Film Array) Stat 06/04/22 18:57 CT angio head and neck Stat 06/04/22 19:45 Urinalysis and Microscopic Stat Discontinued Medications Alprazolam (Alprazolam 0.25 Mg Tablet) 0.25 mg PO NOW ONE Stop: 06/04/22 23:49 Last Admin: 06/04/22 23:52 Dose: 0.25 mg Documented By: TIA Sodium Chloride (Normal Saline 0.9%) 500 mls @ 1,000 mls/hr IV BOLUS ONE Stop: 06/04/22 19:26 Last Infusion: 06/04/22 21:03 Dose: 0 mls/hr Documented By: Admin: 06/04/22 19:48 Dose: 1,000 mls/hr Documented By: JAKY Lisinopril (Lisinopril 10 Mg Tablet) 10 mg PO NOW ONE Stop: 06/04/22 22:45 Last Admin: 06/04/22 22:59 Dose: 10 mg Documented By: RL Meclizine HCl (Meclizine Hcl 12.5 Mg Tablet) 25 mg PO NOW ONE Stop: 06/04/22 20:04 Last Admin: 06/04/22 20:32 Dose: 25 mg Documented By: RL Reevaluation(s) Reevaluation #1: Reviewed results with patient. Dizziness is little bit better after Antivert. However after review with results and what has been going on with patient in her life this past year with anniversary of the of her , father in hospice and poor relationship with her sister, she is felt depressed anxious. Son confirms this. She needs to go back into therapy or counseling. Blood pressure needs to be changed as she is not had changes in her blood pressure medication in 12 years. She only takes thiazide. She agrees with lisinopril 10 mg daily. We will start that tonight. In addition she was in [place] this past December 2021 and developed COVID. She did have a lot of sinus problems after returning. It did improve. However this past week she feels fullness in her sinuses again. And this can cause dizziness as well. Time: 22:47 Reevaluation #2: Systolic 180 has been 40 minutes after lisinopril 10 mg. Patient states possibly her anxiety is causing her blood pressure to be elevated. However she states 2 or 3 weeks ago she was at the [facility] and it was elevated then and she got a letter to make sure she had her blood pressure rechecked. It was high then. This is not new Time: 23:49 Reevaluation #3: Blood pressure 173/77. Patient feeling much more relaxed, blood pressure trending down. Patient had Xanax to help for more relaxed before leaving. She and son desires discharge home Time: 00:12 Vital Signs Vital signs: Vital Signs - 8 hr 06/04/22 17:07 06/04/22 17:18 06/04/22 17:21 Temperature 98 F Pulse Rate 88 91 H 90 Respiratory Rate 17 35 H Blood Pressure 197/91 H Pulse Oximetry 97 96 95 Oxygen Delivery Method Room Air 06/04/22 17:21 06/04/22 17:30 06/04/22 17:30 Temperature Pulse Rate 80 Respiratory Rate 25 H Blood Pressure 202/99 H 182/91 H Pulse Oximetry 93 Oxygen Delivery Method 06/04/22 17:45 06/04/22 17:45 06/04/22 18:00 Temperature Pulse Rate 68 Respiratory Rate 19 Blood Pressure 159/83 H 176/88 H Pulse Oximetry 95 Oxygen Delivery Method 06/04/22 18:00 06/04/22 18:15 06/04/22 18:15 Temperature Pulse Rate 71 69 Respiratory Rate 32 H 18 Blood Pressure 169/82 H Pulse Oximetry 95 96 Oxygen Delivery Method 06/04/22 18:30 06/04/22 18:30 06/04/22 19:00 Temperature Pulse Rate 67 61 Respiratory Rate 19 20 Blood Pressure 165/76 H Pulse Oximetry 98 98 Oxygen Delivery Method 06/04/22 19:40 06/04/22 19:40 06/04/22 20:29 Temperature Pulse Rate 92 H 135 H Respiratory Rate 27 H Blood Pressure 172/95 H Pulse Oximetry 97 Oxygen Delivery Method 06/04/22 20:30 06/04/22 20:30 06/04/22 21:00 Temperature Pulse Rate 66 Respiratory Rate 15 Blood Pressure 188/88 H 195/91 H Pulse Oximetry 99 Oxygen Delivery Method 06/04/22 21:00 06/04/22 21:30 06/04/22 22:00 Temperature Pulse Rate 73 67 64 Respiratory Rate 19 16 18 Blood Pressure Pulse Oximetry 99 Oxygen Delivery Method 06/04/22 22:30 06/04/22 23:00 06/04/22 23:01 Temperature Pulse Rate 63 79 86 Respiratory Rate 18 29 H 31 H Blood Pressure Pulse Oximetry Oxygen Delivery Method 06/04/22 23:01 06/04/22 23:30 06/04/22 23:30 Temperature Pulse Rate 61 Respiratory Rate 16 Blood Pressure 181/82 H 180/79 H Pulse Oximetry Oxygen Delivery Method 06/05/22 00:00 06/05/22 00:00 Temperature Pulse Rate 60 Respiratory Rate 14 Blood Pressure 173/77 H Pulse Oximetry Oxygen Delivery Method MDM - Headache Differential Diagnosis Differential diagnosis: Likely migraine, tension headache, subarachnoid hemorrhage, headache, sinusitis and other (TIA/stroke/hypertensive urgency/anxiety/sinusitis) Lab Data Result diagrams: 06/04/22 17:25 06/04/22 17:25 Labs: Lab Results 06/04/22 06/04/22 06/04/22 Range/Units 17:25 17:25 18:50 WBC 8.3 (4.5-11.0) X10^3/uL RBC 4.47 (4.0-5.2) X10^6/uL Hgb 14.3 (12.0-16.0) g/dL Hct 41.5 (36-46) % MCV 92.9 (80-100) fL MCH 31.9 (26-34) PG MCHC 34.4 (30-36) % RDW 13.2 (11.6-14.8) % Plt Count 278 (150-400) X10^3/uL Neut % (Auto) 57.8 (50-75) % Lymph % (Auto) 29.0 (25-40) % [place] % (Auto) 8.8 (3-14) % Eos % (Auto) 1.7 L (2-4) % Baso % (Auto) 2.7 H (0-2) % Neut # (Auto) 4800 (5468-4881) /uL Lymph # (Auto) 2400 (9345-8064) /uL [place] # (Auto) 700 (0-900) /uL Eos # (Auto) 100 (0-450) /uL Baso # (Auto) 200 H (0-100) /uL Sodium 138 (137-145) mmol/L Potassium 3.2 L (3.4-5.1) mmol/L Chloride 100 (98-107) mmol/L Carbon Dioxide 28 (22-32) mmol/L BUN 16 (7-17) mg/dL Creatinine 0.79 (0.52-1.04) mg/dL Estimated GFR > 60 (>60) mL/min BUN/Creatinine Ratio 20.3 (6-22) Glucose 105 (80-110) mg/dL Calcium 9.8 (8.4-10.2) mg/dL Magnesium 2.1 (1.6-2.3) mg/dL Total Bilirubin 0.4 (0.2-1.3) mg/dL AST 38 H (14-36) IU/L ALT 32 (<35) IU/L Alkaline Phosphatase 72 (38-126) U/L Total Creatine Kinase 72 (30-135) U/L CK-MB (CK-2) TNP CK-MB (CK-2) Rel Index TNP Troponin I < 0.012 (0.01-0.034) ng/mL Total Protein 8.1 (6.3-8.2) g/dL Albumin 4.4 (3.5-5.0) g/dL Globulin 3.7 (1.7-4.1) g/dL Albumin/Globulin Ratio 1.2 (1.0-2.8) Lipase 109 (23-300) U/L Urine Color Urine Appearance Urine pH (4.5-8.0) Ur Specific [place] (1.000-1.035) Urine Protein (Negative) Urine Glucose (UA) (Negative) g/dL Urine Ketones (NEGATIVE) Urine Occult Blood (Negative) Urine Nitrate (Negative) Urine Bilirubin (NEGATIVE) Urine Urobilinogen (0.2) E.U./dL Ur Leukocyte Esterase (NEGATIVE) Urine RBC (0-5/HPF) Urine WBC (0-5/HPF) Ur Squamous Epith Cells (0-5/HPF) Urine Bacteria (None) Ur Culture Indicated? Chlamy pneumoniae PCR Not detected (Not Detect) Adenovirus (PCR) Not detected (Not Detect) B. pertussis DNA (PCR) Not detected (Not Detecte) B.parapertussis DNA PCR Not detected (Not Detecte) Coronavirus OC43 (PCR) Not detected (Not Detect) Coronavirus HKU1 (PCR) Not detected (Not Detect) Coronavirus 229E (PCR) Not detected (Not Detect) SARS-CoV-2 (PCR) Not detected (Not Detecte) Coronavirus NL63 (PCR) Not detected (Not Detect) Human Metapneumovir PCR Not detected (Not Detect) Influenza Type A (PCR) Not detected (Not Detect) Influenza Type B (PCR) Not detected (Not Detect) M. pneumoniae (PCR) Not detected (Not Detect) Parainfluenza 1 (PCR) Not detected (Not Detect) Parainfluenza 2 (PCR) Not detected (Not Detect) Parainfluenza 3 (PCR) Not detected (Not Detect) Parainfluenza 4 (PCR) Not detected (Not Detect) RSV (PCR) Not detected (Not Detect) Entero/Rhino (PCR) Not detected (Not Detect) 06/04/22 Range/Units 19:45 WBC (4.5-11.0) X10^3/uL RBC (4.0-5.2) X10^6/uL Hgb (12.0-16.0) g/dL Hct (36-46) % MCV (80-100) fL MCH (26-34) PG MCHC (30-36) % RDW (11.6-14.8) % Plt Count (150-400) X10^3/uL Neut % (Auto) (50-75) % Lymph % (Auto) (25-40) % [place] % (Auto) (3-14) % Eos % (Auto) (2-4) % Baso % (Auto) (0-2) % Neut # (Auto) (1786-9697) /uL Lymph # (Auto) (8459-2264) /uL [place] # (Auto) (0-900) /uL Eos # (Auto) (0-450) /uL Baso # (Auto) (0-100) /uL Sodium (137-145) mmol/L Potassium (3.4-5.1) mmol/L Chloride (98-107) mmol/L Carbon Dioxide (22-32) mmol/L BUN (7-17) mg/dL Creatinine (0.52-1.04) mg/dL Estimated GFR (>60) mL/min BUN/Creatinine Ratio (6-22) Glucose (80-110) mg/dL Calcium (8.4-10.2) mg/dL Magnesium (1.6-2.3) mg/dL Total Bilirubin (0.2-1.3) mg/dL AST (14-36) IU/L ALT (<35) IU/L Alkaline Phosphatase (38-126) U/L Total Creatine Kinase (30-135) U/L CK-MB (CK-2) CK-MB (CK-2) Rel Index Troponin I (0.01-0.034) ng/mL Total Protein (6.3-8.2) g/dL Albumin (3.5-5.0) g/dL Globulin (1.7-4.1) g/dL Albumin/Globulin Ratio (1.0-2.8) Lipase (23-300) U/L Urine Color Yellow Urine Appearance Clear Urine pH 7.5 (4.5-8.0) Ur Specific [place] 1.015 (1.000-1.035) Urine Protein Negative (Negative) Urine Glucose (UA) Negative (Negative) g/dL Urine Ketones Negative (NEGATIVE) Urine Occult Blood Negative (Negative) Urine Nitrate Negative (Negative) Urine Bilirubin Negative (NEGATIVE) Urine Urobilinogen 0.2 (0.2) E.U./dL Ur Leukocyte Esterase Negative (NEGATIVE) Urine RBC None seen (0-5/HPF) Urine WBC None seen (0-5/HPF) Ur Squamous Epith Cells 0-1 /hpf (0-5/HPF) Urine Bacteria None seen (None) Ur Culture Indicated? Cult not indicated Chlamy pneumoniae PCR (Not Detect) Adenovirus (PCR) (Not Detect) B. pertussis DNA (PCR) (Not Detecte) B.parapertussis DNA PCR (Not Detecte) Coronavirus OC43 (PCR) (Not Detect) Coronavirus HKU1 (PCR) (Not Detect) Coronavirus 229E (PCR) (Not Detect) SARS-CoV-2 (PCR) (Not Detecte) Coronavirus NL63 (PCR) (Not Detect) Human Metapneumovir PCR (Not Detect) Influenza Type A (PCR) (Not Detect) Influenza Type B (PCR) (Not Detect) M. pneumoniae (PCR) (Not Detect) Parainfluenza 1 (PCR) (Not Detect) Parainfluenza 2 (PCR) (Not Detect) Parainfluenza 3 (PCR) (Not Detect) Parainfluenza 4 (PCR) (Not Detect) RSV (PCR) (Not Detect) Entero/Rhino (PCR) (Not Detect) Imaging Data CTA - brain/neck: Radiologist's Impression: [address] [address] [address] Scan Report Signed Patient: Whitney Jackman MR#: [id number] : 1950 Acct:[id number] Age/Sex: 72 / F Date of Service: 06/04/22 Loc: ED Accession Number: [id number] ?? Procedure: CT angio head and neck Ordering Provider: Parish Batres MD PROCEDURE:? CT ANGIO HEAD AND NECK ? INDICATIONS:? Dizziness/ataxia ? TECHNIQUE:? Pre-contrast 4.5 mm thick sections acquired from the foramen magnum to the vertex.? After the administration of intravenous contrast, 1 mm thick sections acquired from the aortic arch through the [place] of [place].? Post-contrast 4.5 mm thick sections then re- acquired from the foramen magnum to the vertex.? 3-dimensional yporege-znrxhjkub-vvvzedxpwg (MIP) and/or volume rendering reformats were acquired of the central intracranial vasculature and neck separately. For radiation dose reduction, the following was used:? automated exposure control, adjustment of mA and/or kV according to patient size.? ? COMPARISON:? None. ? FINDINGS:? Image quality:? Excellent.? ? BRAIN:? CSF spaces:? Basal cisterns are patent.? No extra-axial fluid collections.? Ventricles are normal in size and shape.? ? Brain:? No intracranial hemorrhage, mass, or mass effect.? Mckeon-white matter interface appears preserved.? No abnormal intracranial enhancement.? ? Skull and face:? Calvarium and facial bones appear intact, without suspicious lesions.? Orbits appear normal.? ? Sinuses:? There is a small air-fluid level within the left maxillary sinus suggestive of acute sinusitis.? Mastoid air cells are clear..? ? HEAD CT ANGIOGRAPHY:? Anterior circulation:? Intracranial internal carotid arteries are normal in size and appear patent bilaterally.? There is mild atherosclerotic calcification along the cavernous segments of the internal carotid arteries.? The paired anterior cerebral arteries appear patent bilaterally.? The anterior communicating artery also appears patent. The middle cerebral arteries appear patent bilaterally.? No high-grade stenosis, occlusion, or filling defects.? No cerebral aneurysms identified. ? Posterior circulation:? There is a right dominant vertebrobasilar system with a diminutive left vertebral artery.? These join to form a patent basilar artery.? The posterior cerebral arteries appears patent bilaterally.? No high-grade stenosis, occlusion, or filling defects.? No cerebral aneurysms identified. ? NECK CT ANGIOGRAPHY:? Carotid system:? The great vessels demonstrate a conventional anatomy as they arise from the aortic arch.? The origins of the common carotid arteries appear patent.? The common carotid arteries demonstrate normal caliber and courses.? The bifurcation regions are both widely patent.? The internal carotid arteries demonstrate normal calibers and courses.? ? Posterior circulation:? The origins of the vertebral arteries both appear riddle nt.? There is a right dominant vertebrobasilar system with a diminutive left vertebral artery.? The more superior extracranial portions of both vertebral arteries also appear patent bilaterally.? They join to form a patent basilar artery.? ? Soft tissues:? Visualized neck soft tissues demonstrates absence of the thyroid.? There is a hypoattenuating nodule in the region of the right thyroid bed measuring approximately 1.4 x 1.4 cm. ? Bones:? No suspicious bony lesions.? Visualized cervical spine demonstrates straightening of the cervical lordosis.? Postsurgical changes are demonstrated status post ACDF at C5-C6. ? ? IMPRESSION:? ? 1. No acute intracranial abnormality. ? 2. No high-grade stenosis or occlusion of the central intracranial arteries. ? 3. No high-grade stenosis or occlusion of the head and neck arteries.? There is a right dominant vertebrobasilar system. ? 4. Absence of the thyroid with a hypoattenuating nodule in the region of the right thyroid lobe.? Recommend correlation with clinical history and further evaluation with ultrasound if indicated. ? Any quantitative measurements of stenosis were performed using NASCET criteria.? ? ? Dictated by: Gilbert Lema M.D. on 06/04/2022 at 20:08 ? ? Approved by: Gilbert Lema M.D. on 06/04/2022 at 20:17 ? Chest x-ray: Radiologist's Impression: [address] [address] XRay Report Signed Patient: Whitney Jackman MR#: [id number] : 1950 Acct:[id number] Age/Sex: 72 / F Date of Service: 06/04/22 Loc: ED Accession Number: [id number] ?? Procedure: XR chest 1V Ordering Provider: Kaity Bonilla D.O. PROCEDURE:? XR CHEST 1V ? INDICATIONS:? chest pain ? TECHNIQUE:? One view of the chest was acquired.? ? COMPARISON:? [facility], CHEST 2 VIEW, 09/11/2016, 16:18.? [facility], CHEST 2 VIEW, 02/17/2016, 10:21. ? FINDINGS:? ? Surgical changes and devices:? None.? ? Lungs and pleura:? Lungs are clear.? No pleural effusions or pneumothorax.? ? Mediastinum:? Mediastinal contours appear normal.? Heart size is normal.? ? Bones and chest wall:? No suspicious bony lesions.? Overlying soft tissues appear unremarkable.? ? IMPRESSION:? No acute cardiopulmonary abnormality. ? ? Dictated by: Lorenzo Everett M.D. on 06/04/2022 at 17:41 ? ? Approved by: Lorenzo Everett M.D. on 06/04/2022 at 17:41 ? MRI brain: Radiologist's Impression: [place] [address] Magnetic Resonance Report Signed Patient: Whitney Jackman MR#: [id number] : 1950 Acct:[id number] Age/Sex: 72 / F Date of Service: 06/04/22 Loc: ED Accession Number: [id number] ?? Procedure: MR head/brain wo con Ordering Provider: Parish Batres MD PROCEDURE:? MR HEAD/BRAIN WO CON ? INDICATIONS:? Dizziness/ataxia ? TECHNIQUE:? Noncontrast axial T1 spin echo, axial T2 fast spin echo, sagittal and axial FLAIR, coronal T2 fast spin echo, axial gradient echo, axial diffusion and ADC through the brain.? ? COMPARISON:? None. ? FINDINGS:? Image quality:? There is mild inhomogeneous fat saturation.? ? CSF Spaces:? Basal cisterns are patent.? No extra-axial fluid collections.? There is mild cerebral volume loss with prominence of the ventricles and sulci. ? Brain:? Diffusion-weighted images demonstrate no acute infarcts.? No intracranial hemorrhage, mass, or mass effect.? There are subcortical and periventricular foci of white matter T2 hyperintensity consistent with mild chronic small vessel ischemic changes.? Mckeon/white matter interface is preserved.? Brainstem appears normal.? Normal intravascular flow voids are present.? ? Skull and face:? Calvarium has normal marrow signal.? Orbits appear normal.? ? Sinuses:? There is a small fluid level in the left maxillary sinus suggestive of acute sinusitis.? Mild partial fluid opacification is demonstrated within the mastoid air cells which may reflect mild mastoiditis. ? IMPRESSION:? ? 1. No infarct or other acute intracranial abnormality. ? 2. Mild chronic white matter small vessel ischemic changes and cerebral volume loss.? ? ? Dictated by: Gilbert Lema M.D. on 06/04/2022 at 21:49 ? ? Approved by: Gilbert Lema M.D. on 06/04/2022 at 21:53 ? ECG Data Interpretation: Sinus rhythm, premature supraventricular complexes. Left bundle-branch block. MDM Narrative Medical decision making narrative: Appropriate for discharge home. Exam laboratory studies and imaging and EKG and vital signs otherwise reassuring. Patient agrees for changes in medication for blood pressure. Patient and son agree largely anxiety and depression as driven most of her symptoms today and this week. They do agree for seeking counseling/therapy/psychiatry. They do have resources. I will prescribe lisinopril 10 mg daily to her regimen. At this time no Antivert. Return precautions reviewed with them. They desire discharge home. Discharge Plan Departure Patient Disposition: Home Clinical Impression: Generalized anxiety disorder, Tension headache, Essential hypertension Instructions: High Blood Pressure, DI for Anxiety -- Adult, DI for Hormonal and Tension Headaches Activity Restrictions/Additional Instructions: See family doctor next week for re-evaluation of your blood pressure as he has been started on a new blood pressure medication. You may continue the hydrochlorothiazide. You will need referral to counseling or therapy or p sychiatry. I think this will help with her anxiety and depression. Return if worse or if any questions or concerns. May take Tylenol for headache. Keep well hydrated. No driving or operating machinery tonight Prescriptions: New lisinopril 10 mg tablet 10 mg PO DAILY Qty: 30 0RF No Action levothyroxine 100 mcg capsule 100 mcg PO .Every other day Rx Instructions: alternating with the 112 multivitamin Capsule 1 cap PO DAILY eszopiclone 1 mg tablet 1 mg PO BEDTIME PRN (Reason: severe insomnia) Qty: 10 1RF Rx Instructions: Do not take within 4 hours of lorazepam lorazepam 1 mg tablet 1 mg PO BID-TID PRN (Reason: anxiety) Qty: 10 1RF cholecalciferol (vitamin D3) [Vitamin D3] 2,000 UNIT capsule 4,000 unit PO QDAY Qty: 0 Syringes IM SEE INSTRUCTIONS Qty: 3 3RF desvenlafaxine succinate 50 mg tablet extended release 24 hr See Rx Instructions .ROUTE .COMPLEX Qty: 90 1RF Dose Instruction: TAKE 1 TABLET BY MOUTH EVERY DAY Rx Instructions: TAKE 1 TABLET BY MOUTH EVERY DAY hydrochlorothiazide 25 mg Tablet 25 mg PO DAILY potassium chloride 20 mEq Tablet Extended Release 20 meq PO DAILY Referrals: Leonidas Suarez PA-C [Primary Care Provider] - Visit Report Forms: Patient Portal/API
--- NOTE | 2022-06-04 18:57 | DI.CT.S_ITS ---
PROCEDURE: CT ANGIO HEAD AND NECK INDICATIONS: Dizziness/ataxia TECHNIQUE: Pre-contrast 4.5 mm thick sections acquired from the foramen magnum to the vertex. After the administration of intravenous contrast, 1 mm thick sections acquired from the aortic arch through the [place] of [place]. Post-contrast 4.5 mm thick sections then re-acquired from the foramen magnum to the vertex. 3-dimensional lbkmhlq-wuxabynod-trusboysza (MIP) and/or volume rendering reformats were acquired of the central intracranial vasculature and neck separately. For radiation dose reduction, the following was used: automated exposure control, adjustment of mA and/or kV according to patient size. COMPARISON: None. FINDINGS: Image quality: Excellent. BRAIN: CSF spaces: Basal cisterns are patent. No extra-axial fluid collections. Ventricles are normal in size and shape. Brain: No intracranial hemorrhage, mass, or mass effect. Mckeon-white matter interface appears preserved. No abnormal intracranial enhancement. Skull and face: Calvarium and facial bones appear intact, without suspicious lesions. Orbits appear normal. Sinuses: There is a small air-fluid level within the left maxillary sinus suggestive of acute sinusitis. Mastoid air cells are clear.. HEAD CT ANGIOGRAPHY: Anterior circulation: Intracranial internal carotid arteries are normal in size and appear patent bilaterally. There is mild atherosclerotic calcification along the cavernous segments of the internal carotid arteries. The paired anterior cerebral arteries appear patent bilaterally. The anterior communicating artery also appears patent. The middle cerebral arteries appear patent bilaterally. No high-grade stenosis, occlusion, or filling defects. No cerebral aneurysms identified. Posterior circulation: There is a right dominant vertebrobasilar system with a diminutive left vertebral artery. These join to form a patent basilar artery. The posterior cerebral arteries appears patent bilaterally. No high-grade stenosis, occlusion, or filling defects. No cerebral aneurysms identified. NECK CT ANGIOGRAPHY: Carotid system: The great vessels demonstrate a conventional anatomy as they arise from the aortic arch. The origins of the common carotid arteries appear patent. The common carotid arteries demonstrate normal caliber and courses. The bifurcation regions are both widely patent. The internal carotid arteries demonstrate normal calibers and courses. Posterior circulation: The origins of the vertebral arteries both appear patent. There is a right dominant vertebrobasilar system with a diminutive left vertebral artery. The more superior extracranial portions of both vertebral arteries also appear patent bilaterally. They join to form a patent basilar artery. Soft tissues: Visualized neck soft tissues demonstrates absence of the thyroid. There is a hypoattenuating nodule in the region of the right thyroid bed measuring approximately 1.4 x 1.4 cm. Bones: No suspicious bony lesions. Visualized cervical spine demonstrates straightening of the cervical lordosis. Postsurgical changes are demonstrated status post ACDF at C5-C6. IMPRESSION: 1. No acute intracranial abnormality. 2. No high-grade stenosis or occlusion of the central intracranial arteries. 3. No high-grade stenosis or occlusion of the head and neck arteries. There is a right dominant vertebrobasilar system. 4. Absence of the thyroid with a hypoattenuating nodule in the region of the right thyroid lobe. Recommend correlation with clinical history and further evaluation with ultrasound if indicated. Any quantitative measurements of stenosis were performed using NASCET criteria. Dictated by: Gilbert Lema M.D. on 06/04/2022 at 20:08 Approved by: Gilbert Lema M.D. on 06/04/2022 at 20:17
[2022-06-04] MEDS: SODIUM CHLORIDE 0.9% 500 ML 1000 ML IV (19:48)
[2022-06-04 19:59] LABS: Adenovirus Not Detected (Not Detect); Coronavirus 229E Not Detected (Not Detect); Coronavirus HKU1 Not Detected (Not Detect); Coronavirus NL 63 Not Detected (Not Detect); Coronavirus OC43 Not Detected (Not Detect); Human Metapneumovirus Not Detected (Not Detect); Human Rhinovirus/Enterovirus Not Detected (Not Detect); SARS- CoV-2 Not Detected (Not Detecte)
[2022-06-04 20:00] LABS: B. parapertussis Not Detected (Not Detecte); Bordetella pertussis Not Detected (Not Detecte); Chlamydophila pneumoniae Not Detected (Not Detect); Influenza A Not Detected (Not Detect); Influenza B Not Detected (Not Detect); Mycoplasma pneumoniae Not Detected (Not Detect); Parainfluenza Virus 1 Not Detected (Not Detect); Parainfluenza Virus 2 Not Detected (Not Detect); Parainfluenza Virus 3 Not Detected (Not Detect); Parainfluenza Virus 4 Not Detected (Not Detect); Respiratory Syncytial Virus Not Detected (Not Detect)
[2022-06-04 20:13] LABS: Appearance Urine UA CLEAR; Bilirubin Urine UA NEGATIVE (NEGATIVE); Color Urine UA YELLOW; Glucose Urine UA NEGATIVE (Negative); Ketones Urine UA NEGATIVE (NEGATIVE); Leukocyte Esterase Urine UA NEGATIVE (NEGATIVE); Nitrite Urine UA NEGATIVE (Negative); Occult Blood Urine UA NEGATIVE (Negative); Protein Urine UA NEGATIVE (Negative); Specific Gravity Urine UA 1.015 (1.000-1.035); Urobilinogen Urine UA 0.2 E.U./dL (0.2); pH Urine UA 7.5 (4.5-8.0)
[2022-06-04 20:20] LABS: Bacteria Urine None Seen; Culture Indicated Urine Cult Not Indicated; RBC Urine None Seen (0-5/HPF); Squamous Epithelial Cell Urine 0-1 /HPF (0-5/HPF); WBC Urine None Seen (0-5/HPF)
[2022-06-04] MEDS: MECLIZINE HCL 12.5 MG TABLET 25 MG PO (20:32)
[2022-06-04] MEDS: lisinopriL 10 MG TABLET PO (22:59)
[2022-06-04] MEDS: ALPRAZolam 0.25 MG TABLET PO (23:52)
[2022-06-05] VITALS: BP 173/77; PULSE 60; RESP 14
== END 2022-06-05 00:36 | disposition home or self-care (01) ==
PROVIDERS: Emergency Medicine; Emergency Provider Emergency Medicine; Family Provider Family Medicine; PCP Physician Assistant
DX: F41.1 Generalized anxiety disorder (principal); I10 Essential (primary) hypertension; G44.209 Tension-type headache, unspecified, not intractable; R07.9 Chest pain, unspecified; Z20.822 Contact with and (suspected) exposure to COVID-19; Z86.16 Personal history of COVID-19
CPT/HCPCS: 36415; 70496; 70498; 70551; 71045; 80053; 81001; 82550; 83690; 83735; 84484; 85025; 87633; 93005; 96360; 99284; 99285; Q9967

== ENCOUNTER → 2022-10-27 11:11 | Outpatient (CLI) | payer OTHER, SELFPAY ==
--- NOTE | 2022-10-27 11:35 | DI.DEXA.S_ITS ---
Indication: postmenopausal; screening for osteoporosis; Referring Provider: CHRISTINA TOM Study: Bone densitometry was performed. Exam Date: October 27, 2022 Accession number: [id number] Bone Density: Region BMD T-score Z-score Classification AP Spine(L1-L4) 1.139 0.8 3.0 Normal Femoral Neck (Left) 0.777 -0.6 1.2 Normal Total Hip (Left) 0.962 0.2 1.7 Normal Femoral Neck (Right) 0.784 -0.6 1.3 Normal Total Hip (Right) 0.940 0.0 1.5 Normal Total Hip Mean 0.951 0.1 1.6 Normal World Health Organization criteria for BMD impression classify patients as: Normal (T-score at or above -1.0), Osteopenia (T-score between -1.0 and -2.5), or Osteoporosis (T-score at or below -2.5). 10-year Fracture Risk: FRAX not reported because: All T-scores for Spine Total, Hip Total, Femoral Neck at or above -1.0 Previous Exams: -- Region Exam Age BMD T-score BMD Change BMD Change Date g/cm2 vs Baseline vs Previous -- AP Spine (L1-L4) 10/27/2022 72 1.139 0.8 -0.065 (-5.4%)# -0.065 (-5.4%)# 02/06/2019 69 1.204 1.4 Total Hip(Left) 10/27/2022 72 0.962 0.2 -0.041 (-4.1%)# -0.041 (-4.1%)# 02/06/2019 69 1.003 0.5 Total Hip(Right) 10/27/2022 72 0.940 0.0 -0.079 (-7.7%)# -0.079 (-7.7%)# 02/06/2019 69 1.019 0.6 -- *Denotes significance at 95% confidence level, LSC for AP Spine = 0.022 g/cm2, LSC for Total Hip = 0.027 g/cm2 # Denotes dissimilar scan types or analysis methods Impression: The patient has normal bone mass. No significant bone loss was observed. Discussion: BONE DENSITY IS ABOVE THE MINIMUM DESIRABLE LEVEL AT ALL SKELETAL SITES TESTED. This patient?s bone mineral density is above the minimum desirable level (T-score -1.0 or better) at all sites measured. The patient should follow a healthful lifestyle (good nutrition with adequate calcium and vitamin D, and appropriate weight-bearing exercise). Follow-Up: Consider repeating this study in 5 years or sooner if there is some new clinical indication. Reported by: LOLI ROBERT M.D. on 10/27/2022 11:43:00 AM.
== END ==
PROVIDERS: Family Provider Family Medicine; PCP Physician Assistant; Referring Provider Physician Assistant; Visit Provider Physician Assistant
DX: Z13.820 Encounter for screening for osteoporosis (principal); Z78.0 Asymptomatic menopausal state
CPT/HCPCS: 77080

== ENCOUNTER 2022-12-11 10:58 | Emergency (ER) | payer OTHER, SELFPAY ==
--- NOTE | 2022-12-11 11:02 | DI.RAD.S_ITS ---
PROCEDURE: XR CHEST 1V INDICATIONS: cough and fever TECHNIQUE: One view of the chest was acquired. COMPARISON: [facility], CR, XR CHEST 1V, 06/04/2022, 17:25. FINDINGS: Surgical changes and devices: None. Lungs and pleura: Lungs are clear. No pleural effusions or pneumothorax. Mediastinum: Mediastinal contours appear normal. Heart size is normal. Bones and chest wall: No suspicious bony lesions. Overlying soft tissues appear unremarkable. Cervical fixation hardware is present. IMPRESSION: No acute cardiopulmonary findings. Dictated by: Parish Hill M.D. on 12/11/2022 at 10:26 Approved by: Parish Hill M.D. on 12/11/2022 at 10:27
[2022-12-11 11:03] VITALS: PULSE 101; O2SAT 99
[2022-12-11 11:04] VITALS: BP 165/77; PULSE 86; O2SAT 98
[2022-12-11 11:05] VITALS: BP 165/77; PULSE 89; RESP 18; TEMP 36.8; O2SAT 99; BMI 31.4
--- NOTE | 2022-12-11 11:16 | ED.GENADULT ---
HPI - General Adult General Chief complaint: Upper Respiratory Symptoms Stated complaint: cough, fever, headache Time Seen by Provider: 12/11/22 11:02 Source: patient Mode of arrival: Ambulatory Limitations: no limitations History of Present Illness HPI narrative: Patient is a 72-year-old female. No underlying lung pathology. States that for the past 3 weeks she has had cough and runny nose and fevers and swollen lymph nodes. She has been trying ehtc-lvd-xikueky medications without any improvement. She is been coughing so much that she is nauseous and vomiting. At the beginning she did have right ear pain but that has since resolved. No skin rashes. No chest pain. No abdominal pain. No change in bowel habits. No urinary symptoms. She did just recently returned home from a trip to [place]. It was just a couple days after she arrived in [place] when the symptoms started. Other than the dvgz-dky-kzuolgz medicines has not tried anything for the symptoms. Related Data Home Medications Medication Instructions Recorded Confirmed cholecalciferol (vitamin D3) 50 4,000 unit PO QDAY ##0 10/25/12 04/28/22 mcg (2,000 unit) capsule (Vitamin D3) multivitamin 1 cap PO DAILY 07/27/19 04/28/22 levothyroxine 100 mcg capsule 100 mcg PO .Every other day 09/23/20 06/04/22 hydrochlorothiazide 25 mg tablet 25 mg PO DAILY 06/04/22 06/04/22 potassium chloride 20 mEq 20 meq PO DAILY 06/04/22 06/04/22 tablet,extended release Previous Rx's Medication Instructions Recorded Syringes syr IM SEE INSTRUCTIONS ##3 04/27/18 eszopiclone 1 mg tablet 1 mg PO BEDTIME PRN severe 09/16/21 insomnia #10 tabs desvenlafaxine succinate 50 mg See Rx Instructions .Route 03/12/22 tablet,extended release 24 hr .COMPLEX #90 tabs lorazepam 1 mg tablet 1 mg PO BID-TID PRN anxiety #10 04/28/22 tabs lisinopril 10 mg tablet 10 mg PO DAILY #30 tabs 06/04/22 azithromycin 250 mg tablet See Rx Instructions PO .COMPLEX #6 12/11/22 tabs benzonatate 100 mg capsule 100 mg PO BID-TID PRN cough #20 12/11/22 caps Allergies Allergy/AdvReac Type Severity Reaction Status Date / Time amitriptyline [AMITRIPTYLINE] Allergy Mild ITCHING Verified 06/04/22 17:11 codeine [CODEINE] Allergy Mild ITCHING Verified 06/04/22 17:11 hydrocodone [HYDROCODONE] Allergy Mild ITCHING Verified 06/04/22 17:11 hydromorphone [HYDROMORPHONE] Allergy Mild RASH Verified 06/04/22 17:11 metoclopramide Allergy Mild Verified 06/04/22 17:11 [METOCLOPRAMIDE] oxycodone [OXYCODONE] Allergy Mild ITCHING Verified 06/04/22 17:11 prochlorperazine Allergy Mild Verified 06/04/22 17:11 [PROCHLORPERAZINE] sumatriptan [SUMATRIPTAN] Allergy Mild Verified 06/04/22 17:11 escitalopram [ESCITALOPRAM] AdvReac Unknown SHAKEY,ANXI Verified 06/04/22 17:11 OUS,ELIAS Review of Systems Constitutional Constitutional: Reports system reviewed and no additional complaints, except as documented ENT Ears, Nose, Mouth, and Throat: Reports system reviewed and no additional complaints, except as documented Cardiovascular Cardiovascular: Reports system reviewed and no additional complaints, except as documented Respiratory Respiratory: Reports system reviewed and no additional complaints, except as documented Gastrointestinal Gastrointestinal: Reports system reviewed and no additional complaints, except as documented Integumentary/Breasts Skin/Breast: Reports system reviewed and no additional complaints, except as documented Patient History Medical History (Updated 12/11/22 @ 11:50 by Reymundo Brand DO) Allergic rhinitis Anxiety Chronic back pain Chronic headaches Colon polyps (2010) Depression Fibromyalgia Graves disease History of radioactive iodine thyroid ablation Hypertension Hypothyroidism IBS (irritable bowel syndrome) Migraines Sleep apnea Vitamin B 12 deficiency Surgical History History of cervical spinal surgery (2008) History of colonoscopy with polypectomy (2010) Status post laminectomy (2009) Family History Father Colon polyps Social History marital status: number of children: 3 household members: spouse lives independently: No caregiver/support person: Yes housing: house education level: vocational occupational status: unemployed Smoking Status: Never smoker alcohol intake: current substance use type: does not use Smoking Status: Never smoker alcohol intake frequency: holidays/special occasions only Substance Use Type: does not use Exam Initial Vital Signs Initial Vital Signs: Vital Signs Temperature 98.2 F 12/11/22 11:05 Pulse Rate 89 12/11/22 11:05 Respiratory Rate 18 12/11/22 11:05 Blood Pressure 165/77 H 12/11/22 11:05 Pulse Oximetry 99 12/11/22 11:05 Oxygen Delivery Method Room Air 12/11/22 11:05 Const General: cooperative and comfortable HENMT Head: normal to inspection and normocephalic Resp Effort & Inspection: normal respiratory effort and not tachypneic Auscultation: rhonchi and no wheezes Cardio Rate: regular rate Rhythm: regular rhythm GI Inspection: normal to inspection Skin General: no rashes or lesions noted Neuro General: patient alert, patient awake, patient oriented x3 and moves all extremities Extrem General: No edema Course Orders Ordered: ED Orders 12/11/22 11:02 XR chest 1V Stat Discontinued Medications Ondansetron HCl (Ondansetron 4 Mg Odt) 4 mg SL NOW ONE Stop: 12/11/22 11:16 Last Admin: 12/11/22 11:27 Dose: 4 mg Vital Signs Vital signs: Vital Signs - 8 hr 12/11/22 11:05 Temperature 98.2 F Pulse Rate 89 Respiratory Rate 18 Blood Pressure 165/77 H Pulse Oximetry 99 Oxygen Delivery Method Room Air Medical Decision Making Imaging Data Chest x-ray: Radiologist's Impression: PROCEDURE:? XR CHEST 1V ? INDICATIONS:? cough and fever ? TECHNIQUE:? One view of the chest was acquired.? ? COMPARISON:? [facility], , XR CHEST 1V, 06/04/2022, 17:25. ? FINDINGS:? ? Surgical changes and devices:? None.? ? Lungs and pleura:? Lungs are clear.? No pleural effusions or pneumothorax.? ? Mediastinum:? Mediastinal contours appear normal.? Heart size is normal.? ? Bones and chest wall:? No suspicious bony lesions.? Overlying soft tissues appear unremarkable.? Cervical fixation hardware is present. ? IMPRESSION:? No acute cardiopulmonary findings. MDM Narrative Medical decision making narrative: Patient has had approximately 3 weeks of a productive cough and fevers and shortness of breath. Here in the emergency department she did have coarse breath sounds. No wheezing. Chest x-ray is negative however given her presentation will clinically treat her as an atypical pneumonia. No indication for admission to the hospital. Not hypoxic. Not tachypneic. I did discuss this with the patient. Antibiotics and other symptom treatment medications were sent to the pharmacy of her choice. She was given return precautions. She expressed understanding and agreement. Discharge Plan Departure Patient Disposition: Home Clinical Impression: Atypical pneumonia Instructions: DI for Atypical Pneumonia Activity Restrictions/Additional Instructions: Recommend that you continue to take all of your medications as directed. Prescriptions from today's visit were sent to [facility] per your request. Return to the emergency department for any new or worsening symptoms. I also recommend that you try the [id number] antihistamine such as Claritin or Leslie or Zyrtec. The generic versions these medications are appropriate. You can take Tylenol for any body aches or headaches. Prescriptions: New azithromycin 250 mg tablet See Rx Instructions .ROUTE .COMPLEX Qty: 6 0RF Rx Instructions: For 250 mg dose pack: take 500 mg today (day 1), then 250 mg for 4 days (days 2-5) benzonatate 100 mg capsule 100 mg PO BID-TID PRN (Reason: cough) Qty: 20 0RF No Action levothyroxine 100 mcg capsule 100 mcg PO .Every other day Rx Instructions: alternating with the 112 multivitamin Capsule 1 cap PO DAILY eszopiclone 1 mg tablet 1 mg PO BEDTIME PRN (Reason: severe insomnia) Qty: 10 1RF Rx Instructions: Do not take within 4 hours of lorazepam lorazepam 1 mg tablet 1 mg PO BID-TID PRN (Reason: anxiety) Qty: 10 1RF cholecalciferol (vitamin D3) [Vitamin D3] 2,000 UNIT capsule 4,000 unit PO QDAY Qty: 0 Syringes IM SEE INSTRUCTIONS Qty: 3 3RF desvenlafaxine succinate 50 mg tablet extended release 24 hr See Rx Instructions .ROUTE .COMPLEX Qty: 90 1RF Dose Instruction: TAKE 1 TABLET BY MOUTH EVERY DAY Rx Instructions: TAKE 1 TABLET BY MOUTH EVERY DAY hydrochlorothiazide 25 mg Tablet 25 mg PO DAILY potassium chloride 20 mEq Tablet Extended Release 20 meq PO DAILY lisinopril 10 mg tablet 10 mg PO DAILY Qty: 30 0RF Referrals: Leonidas Suarez PA-C [Primary Care Provider] - Stand Alone Forms: Patient Portal/API
[2022-12-11] MEDS: ONDANSETRON 4 MG ODT SL (11:27)
[2022-12-11 11:30] VITALS: BP 157/82; PULSE 80; RESP 20; O2SAT 96
[2022-12-11 11:55] VITALS: BP 157/82; PULSE 77; RESP 19; O2SAT 95
== END 2022-12-11 11:57 | disposition home or self-care (01) ==
PROVIDERS: Emergency Provider Emergency Medicine; Family Provider Family Medicine; PCP Physician Assistant
DX: J18.9 Pneumonia, unspecified organism (principal)
CPT/HCPCS: 71045; 99283

== ENCOUNTER 2022-12-14 09:18 | Emergency (ER) | payer OTHER, SELFPAY ==
[2022-12-14] VITALS (9 sets, daily range): BP systolic 131–154; BP diastolic 70–84; PULSE 69–90; RESP 12–23; TEMP 36.6; O2SAT 95–98; BMI 29.8
--- NOTE | 2022-12-14 09:43 | DI.RAD.S_ITS ---
PROCEDURE: XR CHEST 1V INDICATIONS: Shortness of breath TECHNIQUE: One view of the chest was acquired. COMPARISON: [facility], CR, XR CHEST 1V, 12/11/2022, 10:59. FINDINGS: Surgical changes and devices: None. Lungs and pleura: Lungs are clear. No pleural effusions or pneumothorax. Mediastinum: Mediastinal contours appear normal. Heart size is normal. Bones and chest wall: No suspicious bony lesions. Overlying soft tissues appear unremarkable. IMPRESSION: No acute process. Dictated by: Alexi Burnham M.D. on 12/14/2022 at 10:08 Approved by: Alexi Burnham M.D. on 12/14/2022 at 10:08
--- NOTE | 2022-12-14 10:09 | ED.SOB ---
HPI - SOB/Dyspnea General Chief Complaint: Shortness of Breath/Dyspnea Stated Complaint: here T-3 walking pneouminia not getting better Time Seen by Provider: 12/14/22 09:38 Source: patient Mode of arrival: Ambulatory History of Present Illness HPI Narrative: 72-year-old female who presents with cough and body aches ongoing for number of weeks. She reports that she went to [place] a trip on November 22 she says she lived on [facility]. She is had this ongoing nonproductive cough. She was seen evaluated here December 11 had a chest x-ray diagnosed with atypical pneumonia and given azithromycin. She reports that she does not feel that much better. She had quite a bad coughing spell last night she coughed so hard that she choked she was very scared. She feels like she is short of breath she has some generalized body aches she feels clammy now. Overall not improving. Related Data Home Medications Medication Instructions Recorded Confirmed cholecalciferol (vitamin D3) 50 4,000 unit PO QDAY ##0 10/25/12 04/28/22 mcg (2,000 unit) capsule (Vitamin D3) multivitamin 1 cap PO DAILY 07/27/19 04/28/22 levothyroxine 100 mcg capsule 100 mcg PO .Every other day 09/23/20 06/04/22 hydrochlorothiazide 25 mg tablet 25 mg PO DAILY 06/04/22 06/04/22 potassium chloride 20 mEq 20 meq PO DAILY 06/04/22 06/04/22 tablet,extended release Previous Rx's Medication Instructions Recorded Syringes syr IM SEE INSTRUCTIONS ##3 04/27/18 eszopiclone 1 mg tablet 1 mg PO BEDTIME PRN severe 09/16/21 insomnia #10 tabs desvenlafaxine succinate 50 mg See Rx Instructions .Route 03/12/22 tablet,extended release 24 hr .COMPLEX #90 tabs lorazepam 1 mg tablet 1 mg PO BID-TID PRN anxiety #10 04/28/22 tabs lisinopril 10 mg tablet 10 mg PO DAILY #30 tabs 06/04/22 azithromycin 250 mg tablet See Rx Instructions PO .COMPLEX #6 12/11/22 tabs benzonatate 100 mg capsule 100 mg PO BID-TID PRN cough #20 12/11/22 caps prednisone 20 mg tablet 40 mg PO DAILY #10 tabs 12/14/22 Allergies Allergy/AdvReac Type Severity Reaction Status Date / Time amitriptyline [AMITRIPTYLINE] Allergy Mild ITCHING Verified 12/14/22 09:46 codeine [CODEINE] Allergy Mild ITCHING Verified 12/14/22 09:46 hydrocodone [HYDROCODONE] Allergy Mild ITCHING Verified 12/14/22 09:46 hydromorphone [HYDROMORPHONE] Allergy Mild RASH Verified 12/14/22 09:46 metoclopramide Allergy Mild Verified 12/14/22 09:46 [METOCLOPRAMIDE] oxycodone [OXYCODONE] Allergy Mild ITCHING Verified 12/14/22 09:46 prochlorperazine Allergy Mild Verified 12/14/22 09:46 [PROCHLORPERAZINE] sumatriptan [SUMATRIPTAN] Allergy Mild Verified 12/14/22 09:46 escitalopram [ESCITALOPRAM] AdvReac Unknown SHAKEY,ANXI Verified 12/14/22 09:46 OUS,ELIAS Review of Systems Review of Systems ROS Unobtainable: All systems reviewed & are unremarkable except as noted in HPI and below Patient History Medical History (Updated 12/14/22 @ 12:21 by Kaity Bonilla DO) Allergic rhinitis Anxiety Chronic back pain Chronic headaches Colon polyps (2010) Depression Fibromyalgia Graves disease History of radioactive iodine thyroid ablation Hypertension Hypothyroidism IBS (irritable bowel syndrome) Migraines Sleep apnea Vitamin B 12 deficiency Surgical History History of cervical spinal surgery (2008) History of colonoscopy with polypectomy (2010) Status post laminectomy (2009) Family History Father Colon polyps Social History marital status: number of children: 3 household members: spouse lives independently: No caregiver/support person: Yes housing: house education level: vocational occupational status: unemployed Smoking Status: Never smoker alcohol intake: current substance use type: does not use Smoking Status: Never smoker alcohol intake frequency: holidays/special occasions only Substance Use Type: does not use Exam Initial Vital Signs Initial Vital Signs: Vital Signs Pulse Rate 90 12/14/22 09:29 Pulse Oximetry 98 12/14/22 09:29 GENERAL: Alert 72-year-old female appears to not feel well HEENT: Head atraumatic,EOMI, pupils reactive, face symmetric, moist mucous membranes CARDIOVASCULAR: Regular rate and rhythm without murmurs, rubs or gallops. RESPIRATORY: Breath sounds equal bilaterally, no wheezes rales or rhonchi. ABDOMEN: Soft, nontender. Normoactive bowel sounds all 4 quadrants. No guarding or rebound. EXTREMITIES: Normal range of motion, no clubbing or edema. Neurovascularly intact NEUROLOGICAL: Alert and oriented x4. SKIN: Warm, slightly clammy, no laceration, no petechiae, no rashes or lesions. Course Orders Ordered: ED Orders 12/14/22 09:43 XR chest 1V Stat EKG-12 Lead Stat Measure peak expiratory flow ONCE RT Consult Eval and Treat NOW 12/14/22 11:00 Respiratory Panel (Film Array) Stat 12/14/22 11:06 D Dimer Stat Discontinued Medications Albuterol (Albuterol 2.5 Mg/3 Ml Neb (Adult)) 2.5 mg INH NOW ONE Stop: 12/14/22 10:57 Albuterol (Albuterol Hfa Prepack) 1 box MISC SEEINSTR ONE Stop: 12/14/22 11:15 Last Admin: 12/14/22 11:22 Dose: 1 box Documented By: SERENITY Ketorolac Tromethamine (Ketorolac 30 Mg/Ml Vial) 15 mg IV NOW ONE Stop: 12/14/22 12:14 Last Admin: 12/14/22 12:19 Dose: 15 mg Documented By: RO Vital Signs Vital signs: Vital Signs - 8 hr 12/14/22 11:28 12/14/22 11:00 12/14/22 11:00 Pulse Rate 76 Respiratory Rate 14 Blood Pressure 131/75 Pulse Oximetry 95 Oxygen Delivery Method Room Air Room Air 12/14/22 11:30 12/14/22 11:30 12/14/22 12:00 Pulse Rate 80 Respiratory Rate 13 Blood Pressure 131/73 133/73 Pulse Oximetry 95 Oxygen Delivery Method 12/14/22 12:00 Pulse Rate 76 Respiratory Rate 14 Blood Pressure Pulse Oximetry 95 Oxygen Delivery Method Room Air MDM - SOB/Dyspnea Lab Data 12/14/22 09:30 12/14/22 09:30 Labs: Lab Results 12/14/22 12/14/22 12/14/22 Range/Units 09:30 09:30 09:30 WBC 6.8 (4.5-11.0) X10^3/uL RBC 4.50 (4.0-5.2) X10^6/uL Hgb 14.4 (12.0-16.0) g/dL Hct 42.1 (36-46) % MCV 93.6 (80-100) fL MCH 32.1 (26-34) PG MCHC 34.3 (30-36) % RDW 13.2 (11.6-14.8) % Plt Count 269 (150-400) X10^3/uL Neut % (Auto) 41.1 L (50-75) % Lymph % (Auto) 42.0 H (25-40) % Kershaw % (Auto) 14.8 H (3-14) % Eos % (Auto) 1.7 L (2-4) % Baso % (Auto) 0.4 (0-2) % Neut # (Auto) 2800 (9507-6792) /uL Lymph # (Auto) 2900 (2605-0073) /uL K[place]haw # (Auto) 1000 H (0-900) /uL Eos # (Auto) 100 (0-450) /uL Baso # (Auto) 0 (0-100) /uL PT 11.7 (10.1-12.7) SECONDS INR 1.0 (0.9-1.3) D-Dimer (<500) ng/ml Sodium 131 L (137-145) mmol/L Potassium 3.6 (3.4-5.1) mmol/L Chloride 93 L (98-107) mmol/L Carbon Dioxide 31 (22-32) mmol/L BUN 13 (7-17) mg/dL Creatinine 0.71 (0.52-1.04) mg/dL Estimated GFR > 60 (>60) mL/min BUN/Creatinine Ratio 18.3 (6-22) Glucose 103 (80-110) mg/dL Lactate (0.7-2.1) mmol/L Calcium 9.4 (8.4-10.2) mg/dL Total Bilirubin 0.3 (0.2-1.3) mg/dL AST 36 (14-36) IU/L ALT 30 (<35) IU/L Alkaline Phosphatase 90 (38-126) U/L Troponin I < 0.012 (0.01-0.034) ng/mL NT-Pro-B Natriuret Pep 318 H (<125) pg/mL Total Protein 8.0 (6.3-8.2) g/dL Albumin 4.5 (3.5-5.0) g/dL Globulin 3.5 (1.7-4.1) g/dL Albumin/Globulin Ratio 1.3 (1.0-2.8) Chlamy pneumoniae PCR (Not Detect) Adenovirus (PCR) (Not Detect) B. pertussis DNA (PCR) (Not Detecte) B.parapertussis DNA PCR (Not Detecte) Coronavirus OC43 (PCR) (Not Detect) Coronavirus HKU1 (PCR) (Not Detect) Coronavirus 229E (PCR) (Not Detect) SARS-CoV-2 (PCR) (Not Detecte) Coronavirus NL63 (PCR) (Not Detect) Human Metapneumovir PCR (Not Detect) Influenza Type A (PCR) (Not Detect) Influenza Type B (PCR) (Not Detect) M. pneumoniae (PCR) (Not Detect) Parainfluenza 1 (PCR) (Not Detect) Parainfluenza 2 (PCR) (Not Detect) Parainfluenza 3 (PCR) (Not Detect) Parainfluenza 4 (PCR) (Not Detect) RSV (PCR) (Not Detect) Entero/Rhino (PCR) (Not Detect) 12/14/22 12/14/22 12/14/22 Range/Units 09:30 11:00 11:06 WBC (4.5-11.0) X10^3/uL RBC (4.0-5.2) X10^6/uL Hgb (12.0-16.0) g/dL Hct (36-46) % MCV (80-100) fL MCH (26-34) PG MCHC (30-36) % RDW (11.6-14.8) % Plt Count (150-400) X10^3/uL Neut % (Auto) (50-75) % Lymph % (Auto) (25-40) % Kershaw % (Auto) (3-14) % Eos % (Auto) (2-4) % Baso % (Auto) (0-2) % Neut # (Auto) (8343-2594) /uL Lymph # (Auto) (1733-5188) /uL K[place]haw # (Auto) (0-900) /uL Eos # (Auto) (0-450) /uL Baso # (Auto) (0-100) /uL PT (10.1-12.7) SECONDS INR (0.9-1.3) D-Dimer 651 H (<500) ng/ml Sodium (137-145) mmol/L Potassium (3.4-5.1) mmol/L Chloride (98-107) mmol/L Carbon Dioxide (22-32) mmol/L BUN (7-17) mg/dL Creatinine (0.52-1.04) mg/dL Estimated GFR (>60) mL/min BUN/Creatinine Ratio (6-22) Glucose (80-110) mg/dL Lactate 1.1 (0.7-2.1) mmol/L Calcium (8.4-10.2) mg/dL Total Bilirubin (0.2-1.3) mg/dL AST (14-36) IU/L ALT (<35) IU/L Alkaline Phosphatase (38-126) U/L Troponin I (0.01-0.034) ng/mL NT-Pro-B Natriuret Pep (<125) pg/mL Total Protein (6.3-8.2) g/dL Albumin (3.5-5.0) g/dL Globulin (1.7-4.1) g/dL Albumin/Globulin Ratio (1.0-2.8) Chlamy pneumoniae PCR Not detected (Not Detect) Adenovirus (PCR) Not detected (Not Detect) B. pertussis DNA (PCR) Not detected (Not Detecte) B.parapertussis DNA PCR Not detected (Not Detecte) Coronavirus OC43 (PCR) Detected H (Not Detect) Coronavirus HKU1 (PCR) Not detected (Not Detect) Coronavirus 229E (PCR) Not detected (Not Detect) SARS-CoV-2 (PCR) Not detected (Not Detecte) Coronavirus NL63 (PCR) Not detected (Not Detect) Human Metapneumovir PCR Not detected (Not Detect) Influenza Type A (PCR) Not detected (Not Detect) Influenza Type B (PCR) Not detected (Not Detect) M. pneumoniae (PCR) Not detected (Not Detect) Parainfluenza 1 (PCR) Not detected (Not Detect) Parainfluenza 2 (PCR) Not detected (Not Detect) Parainfluenza 3 (PCR) Not detected (Not Detect) Parainfluenza 4 (PCR) Not detected (Not Detect) RSV (PCR) Not detected (Not Detect) Entero/Rhino (PCR) Not detected (Not Detect) Imaging Data Chest x-ray: Radiologist's Impression: PROCEDURE:? XR CHEST 1V ? INDICATIONS:? Shortness of breath ? TECHNIQUE:? One view of the chest was acquired.? ? COMPARISON:? [facility], CR, XR CHEST 1V, 12/11/2022, 10:59. ? FINDINGS:? ? Surgical changes and devices:? None.? ? Lungs and pleura:? Lungs are clear.? No pleural effusions or pneumothorax.? ? Mediastinum:? Mediastinal contours appear normal.? Heart size is normal.? ? Bones and chest wall:? No suspicious bony lesions.? Overlying soft tissues appear unremarkable.? ? IMPRESSION:? No acute process. ? ? Dictated by: Alexi Burnham M.D. on 12/14/2022 at 10:08 ? ? ECG Data Interpretation: Sinus rhythm rate 63 left bundle-branch block noted no ST changes negative Sgarbossa criteria similar to previous MDM Narrative Medical decision making narrative: Patient is a 72 year female who has otherwise felt healthy but feeling ill over last couple weeks. Seen few days ago thought to have atypical pneumonia on her x-ray started azithromycin without much improvement. Today chest x-ray is clear. Viral panel is positive for a coronavirus. No significant leukocytosis. No evidence of dehydration or CINTIA. Chloride is slightly low at 93 with sodium also low at 131. D-dimer is noted to be slightly elevated at 651 however her symptoms are most consistent with a infectious like syndrome rather than pulmonary embolism. She did just get back from [place]. Age correction this is a negative D-dimer. Patient was given an inhaler with spacer teaching for her cough. At this time also start her on some prednisone. Discharge Plan Departure Patient Disposition: Home Clinical Impression: Upper respiratory infection Instructions: DI for Viral Upper Respiratory Infection -- Adult Activity Restrictions/Additional Instructions: *You have been diagnosed with upper respiratory infection *What to do: At this time you have a coronavirus. This is likely why you still have a cough. No antibiotics are indicated although you can certainly finish the antibiotics that you *Continue to take medications as directed Prednisone 40 mg once a day for 5 days--> Sent to [facility] Albuterol inhaler 1-2 puffs if needed for coughing spells or shortness of breath *Follow up with your primary care provider in 2-3 days or call [phone] *Return to ER if you should have inability to tolerate fluids increasing shortness of breath or chest or any new, worsening or concerning symptoms Prescriptions: New prednisone 20 mg tablet 40 mg PO DAILY Qty: 10 0RF No Action levothyroxine 100 mcg capsule 100 mcg PO .Every other day Rx Instructions: alternating with the 112 multivitamin Capsule 1 cap PO DAILY eszopiclone 1 mg tablet 1 mg PO BEDTIME PRN (Reason: severe insomnia) Qty: 10 1RF Rx Instructions: Do not take within 4 hours of lorazepam lorazepam 1 mg tablet 1 mg PO BID-TID PRN (Reason: anxiety) Qty: 10 1RF cholecalciferol (vitamin D3) [Vitamin D3] 2,000 UNIT capsule 4,000 unit PO QDAY Qty: 0 Syringes IM SEE INSTRUCTIONS Qty: 3 3RF desvenlafaxine succinate 50 mg tablet extended release 24 hr See Rx Instructions .ROUTE .COMPLEX Qty: 90 1RF Dose Instruction: TAKE 1 TABLET BY MOUTH EVERY DAY Rx Instructions: TAKE 1 TABLET BY MOUTH EVERY DAY azithromycin 250 mg tablet See Rx Instructions .ROUTE .COMPLEX Qty: 6 0RF Rx Instructions: For 250 mg dose pack: take 500 mg today (day 1), then 250 mg for 4 days (days 2-5) benzonatate 100 mg capsule 100 mg PO BID-TID PRN (Reason: cough) Qty: 20 0RF hydrochlorothiazide 25 mg Tablet 25 mg PO DAILY potassium chloride 20 mEq Tablet Extended Release 20 meq PO DAILY lisinopril 10 mg tablet 10 mg PO DAILY Qty: 30 0RF Referrals: Leonidas Suarez PA-C [Primary Care Provider] - Stand Alone Forms: Patient Portal/API
[2022-12-14 10:15] LABS: Add Manual Diff / Slide Review NO; Basophils Absolute Auto 0 /uL (0-100); Basophils Percent Auto 0.4 % (0-2); Eosinophils Absolute Auto 100 /uL (0-450); Eosinophils Percent Auto 1.7 % (2-4); Hematocrit 42.1 % (36-46); Hemoglobin 14.4 g/dL (12.0-16.0); Lymphocytes Absolute Auto 2900 /uL (1100-4500); Mean Corpuscular HGB Conc 34.3 % (30-36); Mean Corpuscular Hemoglobin 32.1 PG (26-34); Mean Corpuscular Volume 93.6 fL (80-100); Monocytes Absolute Auto 1000 /uL (0-900); Monocytes Percent Auto 14.8 % (3-14); Neutrophils Absolute Auto 2800 /uL (1500-7000); Neutrophils Percent Auto 41.1 % (50-75); Platelet Count 269 X10^3/uL (150-400); Red Cell Distribution Width 13.2 % (11.6-14.8); White Blood Cell Count 6.8 X10^3/uL (4.5-11.0)
[2022-12-14 10:21] LABS: Prothrombin Time 11.7 SECONDS (10.1-12.7)
[2022-12-14 10:24] LABS: Lactate (Lactic Acid) 1.1 mmol/L (0.7-2.1)
[2022-12-14 10:26] LABS: Alanine Aminotransferase 30 IU/L (<35); Albumin 4.5 g/dL (3.5-5.0); Albumin Globulin Ratio 1.3 (1.0-2.8); Alkaline Phosphatase 90 U/L (38-126); Aspartate Aminotransferase 36 IU/L (14-36); BUN Creatinine Ratio 18.3 (6-22); Bilirubin Total 0.3 mg/dL (0.2-1.3); Blood Urea Nitrogen 13 mg/dL (7-17); Calcium 9.4 mg/dL (8.4-10.2); Carbon Dioxide 31 mmol/L (22-32); Chloride 93 mmol/L (98-107); Estimated Glomerular Filt Rate > 60 mL/min (>60); Globulin 3.5 g/dL (1.7-4.1); Glucose 103 mg/dL (80-110); HEMOLYSIS < 15 (0-50); Potassium 3.6 mmol/L (3.4-5.1); Sodium 131 mmol/L (137-145)
[2022-12-14 10:39] LABS: NT-proBNP (BNP-Adult 18+) 318 pg/mL (<125); Troponin I < 0.012 ng/mL (0.01-0.034)
[2022-12-14 11:09] LABS: D Dimer 651 ng/ml (<500)
[2022-12-14] MEDS: ALBUTEROL HFA PREPACK 1 BOX MISC (11:22)
[2022-12-14 12:04] LABS: Adenovirus Not Detected (Not Detect); B. parapertussis Not Detected (Not Detecte); Bordetella pertussis Not Detected (Not Detecte); Chlamydophila pneumoniae Not Detected (Not Detect); Coronavirus 229E Not Detected (Not Detect); Coronavirus HKU1 Not Detected (Not Detect); Coronavirus NL 63 Not Detected (Not Detect); Coronavirus OC43 Detected (Not Detect); Human Metapneumovirus Not Detected (Not Detect); Human Rhinovirus/Enterovirus Not Detected (Not Detect); Influenza A Not Detected (Not Detect); Influenza B Not Detected (Not Detect); Mycoplasma pneumoniae Not Detected (Not Detect); Parainfluenza Virus 1 Not Detected (Not Detect); Parainfluenza Virus 2 Not Detected (Not Detect); Parainfluenza Virus 3 Not Detected (Not Detect); Parainfluenza Virus 4 Not Detected (Not Detect); Respiratory Syncytial Virus Not Detected (Not Detect); SARS- CoV-2 Not Detected (Not Detecte)
[2022-12-14] MEDS: KETOROLAC 30 MG/ML VIAL 15 MG IV (12:19)
== END 2022-12-14 12:32 | disposition home or self-care (01) ==
PROVIDERS: Emergency Provider Emergency Medicine; Family Provider Family Medicine; PCP Physician Assistant
DX: J06.9 Acute upper respiratory infection, unspecified (principal); I44.7 Left bundle-branch block, unspecified
CPT/HCPCS: 36415; 71045; 80053; 83605; 83880; 84484; 85025; 85379; 85610; 87633; 93005; 96374; 99284; J1885

== ENCOUNTER → 2023-07-20 14:05 | Outpatient (CLI) | payer OTHER, SELFPAY ==
--- NOTE | 2023-07-20 14:06 | DI.RAD.S_ITS ---
PROCEDURE: XR CHEST 2V INDICATIONS: Cough TECHNIQUE: 2 views of the chest were acquired. COMPARISON: [facility], CR, XR CHEST 1V, 12/14/2022, 9:47. FINDINGS: Surgical changes and devices: None. Lungs and pleura: Lungs are clear. No pleural effusions or pneumothorax. Mediastinum: Mediastinal contours are normal. Heart size is normal. Bones and chest wall: No suspicious bony abnormalities. Soft tissues appear unremarkable. IMPRESSION: No acute cardiopulmonary abnormality is seen. Dictated by: Donovan Hernández M.D. on 07/20/2023 at 19:14 Approved by: Donovan Hernández M.D. on 07/20/2023 at 19:14
== END ==
PROVIDERS: Family Provider Family Medicine; PCP Physician Assistant; Referring Provider Nurse Practitioner Family; Visit Provider Nurse Practitioner Family
DX: R05.9 Cough, unspecified (principal)
CPT/HCPCS: 71046

== ENCOUNTER → 2024-08-10 12:34 | Outpatient (CLI) | payer OTHER, SELFPAY ==
[2024-08-10 13:28] LABS: Influenza A - CEPHEID Flu A NEGATIVE (NEGATIVE); Influenza B - CEPHEID Flu B NEGATIVE (NEGATIVE); Respiratory Syncytial Virus POSITIVE (Negative)
[2024-08-10 13:40] LABS: COVID-19 CEPHEID 4-PLEX PCR Negative (Negative)
== END ==
PROVIDERS: Family Provider Family Medicine; PCP Physician Assistant; Visit Provider Physician Assistant Medical
DX: R05.1 Acute cough (principal); J02.9 Acute pharyngitis, unspecified
CPT/HCPCS: 0241U; 87070

== ENCOUNTER → 2024-08-10 13:11 | Outpatient (CLI) | payer OTHER, SELFPAY ==
--- NOTE | 2024-08-10 13:12 | DI.RAD.S_ITS ---
PROCEDURE: XR CHEST 2V INDICATIONS: Cough and shortness of breath TECHNIQUE: 2 views of the chest were acquired. COMPARISON: [facility], CR, XR CHEST 2V, 07/20/2023, 14:27. FINDINGS: Surgical changes and devices: Cervical fusion hardware. Lungs and pleura: Lungs are clear. No pleural effusions or pneumothorax. Mediastinum: Mediastinal contours are normal. Heart size is normal. Bones and chest wall: No suspicious bony abnormalities. Soft tissues appear unremarkable. IMPRESSION: No acute cardiopulmonary abnormality is seen. Dictated by: Donovan Hernández M.D. on 08/10/2024 at 14:03 Approved by: Donovan Hernández M.D. on 08/10/2024 at 14:04
== END ==
PROVIDERS: Family Provider Family Medicine; PCP Physician Assistant; Referring Provider Physician Assistant Medical; Visit Provider Physician Assistant Medical
DX: J02.9 Acute pharyngitis, unspecified (principal); R05.1 Acute cough
CPT/HCPCS: 0241U; 71046; 87070

== ENCOUNTER 2024-08-23 09:53 | Emergency (ER) | payer OTHER, SELFPAY ==
[2024-08-23] VITALS (14 sets, daily range): BP systolic 131–155; BP diastolic 64–95; PULSE 58–77; RESP 12–19; TEMP 36.8; O2SAT 93–99; BMI 30.7
--- NOTE | 2024-08-23 10:03 | EKG_ITS ---
[address] [address] Test Date: 2024-08-23 Pat Name: Whitney Jackman Department: Room: Gender: Female [employer]: : 1950 Requested By: Order Number: [id number] Reading MD: Chu Woods MD Measurements Intervals Gepp Rate: 57 P: 59 PA: 164 QRS: -37 QRSD: 142 T: 123 QT: 448 QTc: 436 Interpretive Statements Sinus bradycardia Left axis deviation Left bundle branch block NO SIGNIFICANT CHANGE FROM PRIOR TRACING Electronically Signed On 08-23-2024 16:31:35 PST by Chu Woods MD
--- NOTE | 2024-08-23 10:03 | DI.RAD.S_ITS ---
PROCEDURE: XR CHEST 1V INDICATIONS: chest pain TECHNIQUE: One view of the chest was acquired. COMPARISON: [facility], CR, XR CHEST 2V, 08/10/2024, 13:18. FINDINGS: Surgical changes and devices: Partially visualized cervical fixation plate. Lungs and pleura: Lungs are clear. No pleural effusions or pneumothorax. Mediastinum: Mediastinal contours appear normal. Heart size is normal. Bones and chest wall: No suspicious bony lesions. Overlying soft tissues appear unremarkable. IMPRESSION: No acute pulmonary process. Dictated by: Carmen Pierre M.D. on 08/23/2024 at 10:28 Approved by: Carmen Pierre M.D. on 08/23/2024 at 10:30
[2024-08-23 10:24] LABS: Add Manual Diff / Slide Review NO; Basophils Absolute Auto 100 /uL (0-100); Basophils Percent Auto 1.1 % (0-2); Eosinophils Absolute Auto 200 /uL (0-450); Hematocrit 42.5 % (36-46); Hemoglobin 14.2 g/dL (12.0-16.0); Lymphocytes Absolute Auto 3100 /uL (1100-4500); Lymphocytes Percent Auto 41.6 % (25-40); Mean Corpuscular HGB Conc 33.5 % (30-36); Mean Corpuscular Volume 95.5 fL (80-100); Monocytes Absolute Auto 900 /uL (0-900); Monocytes Percent Auto 12.3 % (3-14); Neutrophils Absolute Auto 3100 /uL (1500-7000); Platelet Count 279 X10^3/uL (150-400); Red Blood Cell Count 4.45 X10^6/uL (4.0-5.2); Red Cell Distribution Width 13.3 % (11.6-14.8); White Blood Cell Count 7.4 X10^3/uL (4.5-11.0)
[2024-08-23 10:27] LABS: Prothrombin Time 11.6 SECONDS (9.4-12.5)
[2024-08-23 10:29] LABS: PTT Partial Thromboplastin Tim 33 SECONDS (25.1-36.5)
[2024-08-23 10:31] LABS: Alanine Aminotransferase 22 IU/L (<35); Albumin 4.4 g/dL (3.5-5.0); Albumin Globulin Ratio 1.4 (1.0-2.8); Alkaline Phosphatase 66 U/L (38-126); BUN Creatinine Ratio 23.4 (6-22); Bilirubin Total 0.7 mg/dL (0.2-1.3); Blood Urea Nitrogen 18 mg/dL (7-17); Calcium 9.2 mg/dL (8.4-10.2); Carbon Dioxide 27 mmol/L (22-32); Chloride 100 mmol/L (98-107); Creatine Kinase 67 U/L (30-135); Estimated Glomerular Filt Rate > 60 mL/min (>60); Globulin 3.2 g/dL (1.7-4.1); Glucose 103 mg/dL (80-110); Lipase 203 U/L (23-300); Sodium 134 mmol/L (137-145); Total Protein 7.6 g/dL (6.3-8.2)
[2024-08-23 10:32] LABS: HEMOLYSIS 93 (0-50); Potassium 3.8 mmol/L (3.4-5.1)
[2024-08-23 10:33] LABS: Aspartate Aminotransferase 38 IU/L (14-36)
[2024-08-23 10:43] LABS: NT-proBNP (BNP-Adult 18+) 126 pg/mL (<125); Troponin I < 0.012 ng/mL (0.01-0.034)
--- NOTE | 2024-08-23 10:52 | PC.NURSE ---
Discussed dizziness symptoms w/ MD Bonilla Large ear wax ball noted in right ear.
[2024-08-23 11:41] LABS: Influenza A - CEPHEID Flu A NEGATIVE (NEGATIVE); Influenza B - CEPHEID Flu B NEGATIVE (NEGATIVE); Respiratory Syncytial Virus POSITIVE (Negative)
[2024-08-23 11:46] LABS: COVID-19 CEPHEID 4-PLEX PCR Negative (Negative)
--- NOTE | 2024-08-23 12:36 | ED.DIZZY ---
HPI - Dizziness General Chief Complaint: Dizziness Stated Complaint: Dizzy Time Seen by Provider: 08/23/24 10:37 Source: patient Mode of arrival: Ambulatory History of Present Illness HPI Narrative: Patient is a 74-year-old female history of hypertension presenting today with dizziness. She does a history of vertigo she had a complete workup in the emergency department in May 2022 for the same. She was diagnosed with RSV a couple of weeks ago. Feels like she is getting better from that. Denies any sort of chest pain or palpitations no fever or chills. Reports that she felt that she was getting a little bit dizzy last night when she went to bed but this morning had hard time. Now she just does not feel quite right. No numbness tingling or weakness. [place] like she has a blue drainage from her right ear Related Data Home Medications Medication Instructions Recorded Confirmed cholecalciferol (vitamin D3) 50 4,000 unit PO QDAY ##0 10/25/12 08/10/24 mcg (2,000 unit) capsule (Vitamin D3) multivitamin 1 cap PO DAILY 07/27/19 08/10/24 levothyroxine 100 mcg capsule 100 mcg PO .Every other day 09/23/20 08/10/24 hydrochlorothiazide 25 mg tablet 25 mg PO DAILY 06/04/22 08/10/24 potassium chloride 20 mEq 20 meq PO DAILY 06/04/22 08/10/24 tablet,extended release dicyclomine 10 mg capsule 20 mg PO Q6H PRN 08/10/24 08/10/24 Previous Rx's Medication Instructions Recorded Syringes syr IM SEE INSTRUCTIONS ##3 04/27/18 eszopiclone 1 mg tablet 1 mg PO BEDTIME PRN severe 09/16/21 insomnia #10 tabs desvenlafaxine succinate 50 mg See Rx Instructions .Route 03/12/22 tablet,extended release 24 hr .COMPLEX #90 tabs lorazepam 1 mg tablet 1 mg PO BID-TID PRN anxiety #10 04/28/22 tabs lisinopril 10 mg tablet 10 mg PO DAILY #30 tabs 06/04/22 azithromycin 250 mg tablet See Rx Instructions PO .COMPLEX #6 12/11/22 tabs benzonatate 100 mg capsule 100 mg PO BID-TID PRN cough #20 12/11/22 caps prednisone 20 mg tablet 40 mg (2 x 20 mg) PO DAILY #10 tabs 12/14/22 albuterol sulfate 90 mcg/actuation 2 puff inhalation Q6H PRN 07/20/23 aerosol inhaler shortness of breath or wheezing #6.7 grams benzonatate 200 mg capsule 200 mg PO BID PRN cough #28 caps 07/20/23 albuterol sulfate 90 mcg/actuation 2 puff inhalation Q6H PRN 08/10/24 aerosol inhaler shortness of breath or wheezing #8.5 grams albuterol sulfate 90 mcg/actuation 2 puff inhalation Q6H PRN 08/10/24 aerosol inhaler shortness of breath or wheezing #8.5 grams meclizine 25 mg tablet 25 mg PO TID PRN dizziness #10 tabs 08/23/24 ondansetron 4 mg disintegrating 4 mg PO Q8H PRN nausea and 08/23/24 tablet vomiting #10 tabs Allergies Allergy/AdvReac Type Severity Reaction Status Date / Time amitriptyline [AMITRIPTYLINE] Allergy Mild ITCHING Verified 08/23/24 10:05 codeine [CODEINE] Allergy Mild ITCHING Verified 08/23/24 10:05 hydrocodone [HYDROCODONE] Allergy Mild ITCHING Verified 08/23/24 10:05 hydromorphone [HYDROMORPHONE] Allergy Mild RASH Verified 08/23/24 10:05 metoclopramide Allergy Mild Anxiety Verified 08/23/24 10:05 [METOCLOPRAMIDE] oxycodone [OXYCODONE] Allergy Mild ITCHING Verified 08/23/24 10:05 prochlorperazine Allergy Mild Anxiety Verified 08/23/24 10:05 [PROCHLORPERAZINE] sumatriptan [SUMATRIPTAN] Allergy Mild Verified 08/23/24 10:05 escitalopram [ESCITALOPRAM] AdvReac Unknown SHAKEY,ANXI Verified 08/23/24 10:05 CURT IVAN Patient History Medical History (Updated 08/23/24 @ 15:27 by Kaity Bonilla DO) Vitamin B 12 deficiency History of radioactive iodine thyroid ablation Graves disease Allergic rhinitis Sleep apnea Hypertension Hypothyroidism Colon polyps (2010) IBS (irritable bowel syndrome) Chronic back pain Fibromyalgia Migraines Anxiety Chronic headaches Depression Surgical History History of colonoscopy with polypectomy (2010) History of cervical spinal surgery (2008) Status post laminectomy (2009) Family History Father Colon polyps Social History marital status: number of children: 3 household members: spouse lives independently: No caregiver/support person: Yes housing: house education level: vocational occupational status: unemployed Smoking Status: Never smoker alcohol intake: current substance use type: does not use Smoking Status: Never smoker alcohol intake frequency: holidays/special occasions only Exam Initial Vital Signs Initial Vital Signs: Vital Signs Temperature 98.3 F 08/23/24 09:58 Pulse Rate 77 08/23/24 09:58 Respiratory Rate 16 08/23/24 09:58 Blood Pressure 131/95 H 08/23/24 09:58 Pulse Oximetry 98 08/23/24 09:58 Oxygen Delivery Method Room Air 08/23/24 09:58 GENERAL: Alert well-appearing 74-year-old female HEENT: Head atraumatic,EOMI, pupils reactive, no nystagmus face symmetric, moist mucous membranes EARS: Tympanic membranes visualized, no erythema or bulging, no hemotympanum CARDIOVASCULAR: Regular rate and rhythm without murmurs, rubs or gallops. RESPIRATORY: Breath sounds equal bilaterally, no wheezes rales or rhonchi. ABDOMEN: Soft, nontender. Normoactive bowel sounds all 4 quadrants. No guarding or rebound. EXTREMITIES: Normal range of motion, no clubbing or edema. Neurovascularly intact NEUROLOGICAL: Alert and oriented x4.Normal gait and speech. Cranial nerves II through XII grossly intact. Good [id number], good [id number], strength equal bilaterally, no dysarthria or aphasia, sensation in tact to soft touch bilaterally, no visual changes, no facial droop SKIN: Warm, dry, no laceration, no petechiae, no rashes or lesions. Scores NIH Stroke Scale Level of Conciousness: Alert, keenly responsive Ask month/age: Answers both questions correctly. Open/close eyes, close hand: Performs both tasks correctly Best gaze horizontal: Normal Visual acevedo: No visual loss Facial palsy: Normal symetrical movement Left arm drift: No drift for full 10 sec Right arm drift: No drift for full 10 sec Left leg drift: No drift for full 5 sec Right leg drift: No drift for full 5 sec Limb ataxia: Absent Sensory on face/arms/legs: Normal, no sensory loss Best language: No aphasia, normal Dysarthria: Normal Extinction or inattention: No abnormality Total NIH Stroke scale score: 0 Course Orders Ordered: ED Orders 08/23/24 10:11 Complete Blood Count AUTO DIFF Stat Comprehensive Metabolic Panel Stat Lipase Stat Magnesium Stat NT-proBNP (BNP-Adult 18+) Stat PTT Partial Thromboplastin Julio Stat Prothrombin Time INR Stat Troponin & CK Cardiac Panel Stat 08/23/24 10:55 Covid-19 + FLU A/B + RSV - PCR Stat Discontinued Medications Sodium Chloride (Normal Saline 0.9%) 1,000 mls @ 1,000 mls/hr IV BOLUS ONE Stop: 08/23/24 13:51 Last Infusion: 08/23/24 15:28 Dose: Infused Documented By: Admin: 08/23/24 13:07 Dose: 1,000 mls/hr Documented By: LYNDSAY Meclizine HCl (Meclizine Hcl 12.5 Mg Tablet) 25 mg PO NOW ONE Stop: 08/23/24 12:53 Last Admin: 08/23/24 13:07 Dose: 25 mg Documented By: LYNDSAY Vital Signs Vital signs: Vital Signs - 8 hr 08/23/24 11:30 08/23/24 11:30 08/23/24 12:00 Temperature Pulse Rate 58 L Respiratory Rate 18 Blood Pressure 152/71 H 138/66 Pulse Oximetry 97 08/23/24 12:30 08/23/24 12:31 08/23/24 12:31 Temperature Pulse Rate 66 69 Respiratory Rate 16 19 Blood Pressure 145/64 H Pulse Oximetry 97 97 08/23/24 13:00 08/23/24 13:00 08/23/24 13:30 Temperature Pulse Rate 72 Respiratory Rate 18 Blood Pressure 138/71 138/66 Pulse Oximetry 98 08/23/24 13:30 08/23/24 14:07 08/23/24 14:30 Temperature Pulse Rate 74 77 Respiratory Rate 14 14 Blood Pressure Pulse Oximetry 99 93 98 08/23/24 14:31 08/23/24 14:31 08/23/24 15:00 Temperature Pulse Rate Respiratory Rate 13 Blood Pressure 139/67 139/65 Pulse Oximetry 98 08/23/24 15:00 Temperature 98.2 F Pulse Rate 62 Respiratory Rate 17 Blood Pressure Pulse Oximetry 98 MDM - Dizziness Lab Data 08/23/24 10:11 08/23/24 10:11 Labs: Lab Results 08/23/24 08/23/24 Range/Units 10:11 10:55 WBC 7.4 (4.5-11.0) X10^3/uL RBC 4.45 (4.0-5.2) X10^6/uL Hgb 14.2 (12.0-16.0) g/dL Hct 42.5 (36-46) % MCV 95.5 (80-100) fL MCH 32.0 (26-34) PG MCHC 33.5 (30-36) % RDW 13.3 (11.6-14.8) % Plt Count 279 (150-400) X10^3/uL Neut % (Auto) 42.0 L (50-75) % Lymph % (Auto) 41.6 H (25-40) % Fisher % (Auto) 12.3 (3-14) % Eos % (Auto) 3.0 (2-4) % Baso % (Auto) 1.1 (0-2) % Neut # (Auto) 3100 (6728-9879) /uL Lymph # (Auto) 3100 (0610-7896) /uL Fisher # (Auto) 900 (0-900) /uL Eos # (Auto) 200 (0-450) /uL Baso # (Auto) 100 (0-100) /uL PT 11.6 (9.4-12.5) SECONDS INR 1.0 (0.9-1.3) APTT 33 (25.1-36.5) SECONDS Sodium 134 L (137-145) mmol/L Potassium 3.8 (3.4-5.1) mmol/L Chloride 100 (98-107) mmol/L Carbon Dioxide 27 (22-32) mmol/L BUN 18 H (7-17) mg/dL Creatinine 0.77 (0.52-1.04) mg/dL Estimated GFR > 60 (>60) mL/min BUN/Creatinine Ratio 23.4 H (6-22) Glucose 103 (80-110) mg/dL Calcium 9.2 (8.4-10.2) mg/dL Magnesium 2.0 (1.6-2.3) mg/dL Total Bilirubin 0.7 (0.2-1.3) mg/dL AST 38 H (14-36) IU/L ALT 22 (<35) IU/L Alkaline Phosphatase 66 (38-126) U/L Total Creatine Kinase 67 (30-135) U/L Troponin I < 0.012 (0.01-0.034) ng/mL NT-Pro-B Natriuret Pep 126 H (<125) pg/mL Total Protein 7.6 (6.3-8.2) g/dL Albumin 4.4 (3.5-5.0) g/dL Globulin 3.2 (1.7-4.1) g/dL Albumin/Globulin Ratio 1.4 (1.0-2.8) Lipase 203 (23-300) U/L SARS-CoV-2 (PCR) Negative (Negative) Influenza A (RT-PCR) Flu a negative (NEGATIVE) Influenza B (RT-PCR) Flu b negative (NEGATIVE) RSV (PCR) Positive A (Negative) Imaging Data Chest x-ray: Radiologist's Impression: PROCEDURE: XR CHEST 1V INDICATIONS: chest pain TECHNIQUE: One view of the chest was acquired. COMPARISON: [facility], , XR CHEST 2V, 08/10/2024, 13:18. FINDINGS: Surgical changes and devices: Partially visualized cervical fixation plate. Lungs and pleura: Lungs are clear. No pleural effusions or pneumothorax. Mediastinum: Mediastinal contours appear normal. Heart size is normal. Bones and chest wall: No suspicious bony lesions. Overlying soft tissues appear unremarkable. IMPRESSION: No acute pulmonary process. Dictated by: Carmen Pierre M.D. on 08/23/2024 at 10:28 ECG Data Attestation: I personally reviewed and interpreted this ECG as follows: Prior ECG tracings: available for review Interpretation: Sinus rhythm rate 57 AR interval 164 QRS 142 QTC 436 left bundle-branch block seen, similar to prior MDM Narrative Medical decision making narrative: MDM CC: Dizziness Complicating co-morbidities: Recent RSV prior history of vertigo Medical records reviewed: Walk-in clinic record from August 10 reviewed at that time she was positive for RSV Differential considered: Vertigo, Meniere hours, vestibulitis, posterior CVA, sepsis Exam documented above, pertinent findings include: Alert well-appearing 74-year-old female no nystagmus NIH stroke scale 0 Lab Test results independently reviewed as above. Pertinent findings: No leukocytosis no anemia No electrolyte abnormality no CINTIA Troponin negative RSV positive Independently reviewed EKG as above No ischemia Imaging studies independently reviewed: Chest x-ray no acute cardiopulmonary process Consultations: [ ] Treatments: Meclizine IV fluids Re-evaluations: Roberta maneuver. She actually was able to stand felt a little bit better Discussion: Patient 74-year-old history of vertigo presenting today with vertigo like symptoms. She was RSV positive has been like symptoms ongoing for a couple of weeks. No acute symptoms chest x-ray is negative. Blood work is overall reassuring. She says she has had a lot of stress going on in her life lately. He has had vertigo before she felt better after the Roberta maneuver. Symptoms are most consistent with vertigo. I see no need for imaging at this time Discharge Plan Departure Patient Disposition: Home Clinical Impression: Vertigo Instructions: DI for Vertigo Activity Restrictions/Additional Instructions: *You have been diagnosed with vertigo *What to do: At this time it was likely that you have vertigo. You may try the Roberta maneuver at home. Increase fluids. This can come and go suddenly *Continue to take medications as directed Meclizine 25 mg every 8 hours if needed for dizziness Zofran 4 mg every 8 hours for nausea or vomiting *Follow up with your primary care provider in 2-3 days or call [phone] *Return to ER if you should have increasing dizziness weakness or any new, worsening or concerning symptoms Prescriptions: New meclizine 25 mg tablet 25 mg PO TID PRN (Reason: dizziness) Qty: 10 0RF ondansetron 4 mg tablet,disintegrating 4 mg PO Q8H PRN (Reason: nausea and vomiting) Qty: 10 0RF No Action dicyclomine 10 mg capsule 20 mg PO Q6H PRN albuterol sulfate 90 mcg/actuation HFA aerosol inhaler 2 puff inhalation Q6H PRN (Reason: shortness of breath or wheezing) Qty: 8.5 0RF albuterol sulfate 90 mcg/actuation HFA aerosol inhaler 2 puff inhalation Q6H PRN (Reason: shortness of breath or wheezing) Qty: 8.5 0RF albuterol sulfate 90 mcg/actuation HFA aerosol inhaler 2 puff inhalation Q6H PRN (Reason: shortness of breath or wheezing) Qty: 6.7 0RF benzonatate 200 mg capsule 200 mg PO BID PRN (Reason: cough) Qty: 28 0RF levothyroxine 100 mcg capsule 100 mcg PO .Every other day Rx Instructions: alternating with the 112 multivitamin Capsule 1 cap PO DAILY eszopiclone 1 mg tablet 1 mg PO BEDTIME PRN (Reason: severe insomnia) Qty: 10 1RF Rx Instructions: Do not take within 4 hours of lorazepam lorazepam 1 mg tablet 1 mg PO BID-TID PRN (Reason: anxiety) Qty: 10 1RF cholecalciferol (vitamin D3) [Vitamin D3] 2,000 UNIT capsule 4,000 unit PO QDAY Qty: 0 Syringes IM SEE INSTRUCTIONS Qty: 3 3RF desvenlafaxine succinate 50 mg tablet extended release 24 hr See Rx Instructions .ROUTE .COMPLEX Qty: 90 1RF Dose Instruction: TAKE 1 TABLET BY MOUTH EVERY DAY Rx Instructions: TAKE 1 TABLET BY MOUTH EVERY DAY azithromycin 250 mg tablet See Rx Instructions .ROUTE .COMPLEX Qty: 6 0RF Rx Instructions: For 250 mg dose pack: take 500 mg today (day 1), then 250 mg for 4 days (days 2-5) benzonatate 100 mg capsule 100 mg PO BID-TID PRN (Reason: cough) Qty: 20 0RF hydrochlorothiazide 25 mg Tablet 25 mg PO DAILY potassium chloride 20 mEq Tablet Extended Release 20 meq PO DAILY lisinopril 10 mg tablet 10 mg PO DAILY Qty: 30 0RF prednisone 20 mg tablet 40 mg PO DAILY Qty: 10 0RF Referrals: Leonidas Suarez PA-C [Primary Care Provider] - Stand Alone Forms: Patient Portal/API/Survey
[2024-08-23] MEDS: MECLIZINE HCL 12.5 MG TABLET 25 MG PO (13:07)
[2024-08-23] MEDS: SODIUM CHLORIDE 0.9% 1,000 ML 1000 ML IV (13:07)
--- NOTE | 2024-08-23 15:29 | PC.NURSE ---
Pt reports feeling off however, states she feels better after MD Bonilla performed Roberta maneuver.
== END 2024-08-23 15:36 | disposition home or self-care (01) ==
PROVIDERS: Emergency Provider Emergency Medicine; Family Provider Family Medicine; PCP Physician Assistant
DX: R42 Dizziness and giddiness (principal); R07.9 Chest pain, unspecified; I44.7 Left bundle-branch block, unspecified; R00.1 Bradycardia, unspecified
CPT/HCPCS: 0241U; 71045; 80053; 82550; 83690; 83735; 83880; 84484; 85025; 85610; 85730; 93005; 93010; 96360; 96361; 99284